=== PATIENT | male | born 1935 | race Caucasian/White ===

== ENCOUNTER 2019-05-04 09:43 | Outpatient (CLI) | payer MEDICARE, SELFPAY ==
--- NOTE | ~2019-05-04 | US_ITS ---
EXAMINATION: US aorta [facility] DATE: 05/04/2019 10:34 INDICATION: Abdominal aortic aneurysm screening. TECHNIQUE: Grayscale, color Doppler, and pulsed Doppler images of the aorta and common iliac arteries were obtained. COMPARISON: None. FINDINGS: The aorta is normal in caliber. The right common iliac artery is normal in caliber. The left common i liac artery is normal in caliber. IMPRESSION: 1. No abdominal aortic aneurysm. Reviewed, dictated and finalized at location A. PRESIDENT RISK MANAGEMENT
== END 2019-05-04 09:44 | disposition home or self-care (01) ==
PROVIDERS: PCP Internal Medicine; Visit Provider Internal Medicine
DX: Z13.6 Encounter for screening for cardiovascular disorders (principal); Z87.891 Personal history of nicotine dependence
CPT/HCPCS: 76706

== ENCOUNTER 2019-10-27 11:56 | Outpatient (CLI) | payer MEDICARE, SELFPAY ==
--- NOTE | 2019-10-27 | ECG_ITS ---
Measurements Intervals [place] Rate: 65 P: [place]: 0 QRS: 0 QRSD: 92 T: 7 QT: 426 QTc: 445 Interpretive Statements SINUS RHYTHM SUPRAVENTRICULAR TRIGEMINY BORDERLINE AV CONDUCTION DELAY BORDERLINE T WAVE ABNORMALITY- INFERIOR LEADS BASELINE WANDER- III, AVF ABNORMAL ECG Electronically Signed On 10-27-2019 12:57:08 CDT by Xiang Burt D.O.
== END 2019-10-27 11:57 | disposition home or self-care (01) ==
LOC: ANHCARD 11:59
PROVIDERS: PCP Internal Medicine; Visit Provider Internal Medicine
DX: E78.5 Hyperlipidemia, unspecified (principal); R94.31 Abnormal electrocardiogram [ECG] [EKG]
CPT/HCPCS: 93005

== ENCOUNTER 2020-01-08 01:42 | Outpatient (CLI) | payer MEDICARE, SELFPAY ==
[2020-01-08 22:13] LABS: SARS-CoV-2 RNA PCR Negative
== END 2020-01-08 01:43 | disposition home or self-care (01) ==
LOC: ANHCOVIDDT 01:42
PROVIDERS: PCP Internal Medicine; Visit Provider Internal Medicine Gastroenterology
DX: Z01.812 Encounter for preprocedural laboratory examination (principal); Z20.828 Contact with and (suspected) exposure to other viral communicable diseases
CPT/HCPCS: 87635; C9803; U0003

== ENCOUNTER 2020-01-11 00:31 | Day surgery (SDC) | payer MEDICARE, SELFPAY ==
[2020-01-04 14:55] VITALS: BMI 33.3
[2020-01-11 06:56] VITALS: BP 112/66; PULSE 72; RESP 18; TEMP 36.5; O2SAT 96; BMI 32.3
[2020-01-11] MEDS: LACTATED RINGERS 1,000 ML 150 ML IV CONT (07:05)
--- NOTE | 2020-01-11 07:08 | WPDANESEPPF ---
Anes - Initial Pre Proc Eval Procedure: Operation Date: 01/11/20 08:00 Proposed Procedures p Screening Colonoscopy - Duncan Galicia MD Date/Time: 01/11/20 07:08 Surgeon: Duncan Galicia MD Pre Op Diagnosis: neoplasm screening Patient Data Age: 84 Gender: M Height: 1.65 m Weight: 88.2 kg Last Vital Signs Temp 36.5 C 01/11/20 06:56 Pulse 72 01/11/20 06:56 Resp 18 01/11/20 06:56 BP 112/66 01/11/20 06:56 Pulse Ox 96 01/11/20 06:56 Allergies Allergy/AdvReac Type Severity Reaction Status Date / Time No Known Allergies Allergy Verified 01/11/20 06:55 Home Medications Medication Instructions Recorded Confirmed Type aspirin 81 mg tablet,delayed 81 mg PO DAILY 04/27/19 01/04/20 History release lovastatin 20 mg tablet 20 mg PO DAILY #90 tablet 10/27/19 01/04/20 Rx tamsulosin 0.4 mg capsule 0.8 mg PO DAILY #180 cap 10/27/19 01/04/20 Rx peg 3350-electrolytes 236 240 ml PO Q10M #4000 ml 11/24/19 01/04/20 Rx gram-22.74 gram-6.74 gram-5.86 gram solution Patient hx anesthesia problems: none Family hx anesthesia problems: none PMFSH Past Medical History Medical History (Updated 01/11/20 @ 07:11 by Gray Fenton MD) BPH (benign prostatic hyperplasia) Dyslipidemia Obesity Osteoarthritis Social History Social History Smoking status: Unknown if ever smoked Alcohol intake: former Substance use: never Substance use type: does not use Living arrangements: with family Spiritual care concerns: No Anes - Eval Final PreProcedure Day of Procedure 01/11/20 07:08 Patient weight: obese Heart: regular rate and rhythm Lungs: clear to auscultation and normal air movement Airway: Mallampati scale class II Neurological: alert and oriented Last oral intake: >/= 8 hours ASA classification: III Emergent: no Anesthetic plan: proceed Anesthesia type and monitoring: general GIVS Informed Consent: The patient's anesthetic plan and its attendant risks and benefits were discussed with the patient/family/POA. Questions were solicited and answers provided to the satisfaction of the patient/family/POA.
--- NOTE | 2020-01-11 08:13 | PM.HPGS ---
History of Present Illness History of Present Illness Consent: Risks, benefits, and alternatives have been discussed and questions answered. Patient agrees to proceed with procedure. Chief complaint: neoplasm screening Narrative: Skylar Ramirez is a 84 year old male with history of colon polyps, he is due to have another one Review of Systems Constitutional: Constitutional: Denies headache(s) and Denies weakness Eyes: Eyes: Denies blurry vision ENT: Reports Normal hearing present, Denies headache(s) and Denies neck pain Cardiovascular: Cardiovascular: Denies chest pain and Denies dyspnea Respiratory: Respiratory: Denies dyspnea Gastrointestinal: Gastrointestinal: Reports no additional gastrointestinal complaints Genitourinary: Genitourinary: Denies dysuria Musculoskeletal: Musculoskeletal: Denies neck pain Integumentary/Breasts: Skin/Breast: Denies dry skin Neurologic: Reports Normal hearing present, Denies headache(s) and Denies weakness Psychiatric: Psychiatric: Denies anxiety Endocrine: Endocrine: Denies change in body appearance Hematologic/Lymphatic: Hematologic/Lymphatic: Denies easy bleeding Allergic/Immunologic: Allergic/Immunologic: Denies urticaria PMFSH Past Medical History Medical History (Updated 01/11/20 @ 07:11 by Gray Fenton MD) BPH (benign prostatic hyperplasia) Dyslipidemia Obesity Osteoarthritis Social History Social History Smoking status: Unknown if ever smoked Alcohol intake: former Substance use: never Substance use type: does not use Living arrangements: with family Spiritual care concerns: No Meds Home Medications and Allergies Home Medications Medication Instructions Recorded Confirmed Type aspirin 81 mg tablet,delayed 81 mg PO DAILY 04/27/19 01/04/20 History release lovastatin 20 mg tablet 20 mg PO DAILY #90 tablet 10/27/19 01/04/20 Rx tamsulosin 0.4 mg capsule 0.8 mg PO DAILY #180 cap 10/27/19 01/04/20 Rx peg 3350-electrolytes 236 240 ml PO Q10M #4000 ml 11/24/19 01/04/20 Rx gram-22.74 gram-6.74 gram-5.86 gram solution Allergies Allergy/AdvReac Type Severity Reaction Status Date / Time No Known Allergies Allergy Verified 01/11/20 06:55 Vital Signs Vital Signs - 24 hr 01/11/20 06:56 Temperature 97.7 F Pulse Rate 72 Respiratory Rate 18 Blood Pressure 112/66 Pulse Oximetry 96 Exam Const: General: comfortable and no acute distress HENMT: General nose exam: Normal nares present Eyes: General: appearance normal, both eyes and all related structures Neck: Neck: no JVD Resp: Auscultation: clear to auscultation bilaterally Cardio: Rate: regular rate Rhythm: regular rhythm GI: Inspection: non-distended GI Palp: Yes Soft to palpation Skin: General skin exam: normal color Neuro: General: gait normal Speech: normal speech Extrem: General: normal to inspection Psych: Mental Status: mental status grossly normal Assessment and Plan Assessment and plan (1) Encounter for screening colonoscopy: Code(s): Z12.11 - Encounter for screening for malignant neoplasm of colon Status: Acute Assessment and Plan: will proceed with colonoscopy
[2020-01-11 08:41] VITALS: BP 116/62; PULSE 55; RESP 20; O2SAT 100
[2020-01-11 08:51] VITALS: BP 128/63; PULSE 58; RESP 16; O2SAT 98
[2020-01-11 09:01] VITALS: BP 133/96; PULSE 51; RESP 18; O2SAT 98
== END 2020-01-11 09:20 | disposition home or self-care (01) ==
PROVIDERS: PCP Internal Medicine; Visit Provider Internal Medicine Gastroenterology
PROC: 0DJD8ZZ Inspection of Lower Intestinal Tract, Via Natural or Artificial Opening Endoscopic (ICD-10-PCS; CPT 45378; principal; 2020-01-11 08:00)
DX: Z12.11 Encounter for screening for malignant neoplasm of colon (principal); D12.3 Benign neoplasm of transverse colon; E78.5 Hyperlipidemia, unspecified; N40.0 Benign prostatic hyperplasia without lower urinary tract symptoms; E66.9 Obesity, unspecified; Z68.32 Body mass index [BMI] 32.0-32.9, adult
CPT/HCPCS: 45380; 88305; J2001; J2704; J7120

== ENCOUNTER 2020-03-13 10:00 | Outpatient (CLI) | payer MEDICARE, SELFPAY ==
--- NOTE | ~2020-03-13 | NM_ITS ---
EXAMINATION: NM alina stress w perfusion DATE: 03/13/2020 12:31 INDICATION: Chest pain. TECHNIQUE: Rest images were obtained following intravenous administration of 9.4 mCi Tc99m tetrofosmi n (Myoview). The patient was infused intravenously with Lexiscan (regadenoson). Then, 29.2 mCi Tc99m tetrofosmin (Myoview) was administered intravenously, and stress images were obtained. Data was recon structed into short axis and horizontal and vertical long axis SPECT images. Gated SPECT images were also obtained. COMPARISON: None. FINDINGS: There is a small, mild, fixed perfusion defect involving apical lateral segment of left nate tricle, consistent with infarct. No reversible component to suggest ischemia. There is no segmental w all motion abnormality. Left ventricular ejection fraction measures >70%. IMPRESSION: 1. 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 2. Normal left ventricular ejection fraction measuring >70%. Reviewed, dictated and finalized at location A. ON DEVELOPER IMPRESSION: 1. Small area of mild infarct involving apical lateral segment of left ventricl e. 2. Normal left ventricular ejection fraction measuring >70%.
--- NOTE | 2020-03-13 10:56 | EST_ITS ---
Patient Info Name: Skylar Ramirez Age: 84 years : 1935 Gender: Male Ht: 65 in Wt: 200 lbs BSA: 2.07 m2 Exam Date: 03/13/2020 11:23 AM Exam Location: [facility] Stress Patient Status: Outpatient Admit Date: 03/13/2020 Staff Ordering Physician: Santi Schroeder MD Attending Provider: Santi Schroeder MD Exercise Technologist: Shameka Adkins CT Exercise Physician: Xiang Burt DO Exam Type: CA stress alina w NM Study Info A regadenoson stress test was performed. Summary 1. 1. Negative lexiscan stress test for ischemic ST changes by ECG criteria. 2. 2. Baseline hypertension. 3. 3. Nuclear scan to follow and will be reported separately. Please correlate with it. 4. 4. Patient informed of the above results. Protocol: Lexiscan Stress ECG Details Stage: REST Duration (min): 14 min : 4 sec HR (bpm): 62 SBP (mmHg): 149 DBP (mmHg): 89 Stage: STAGE 1 Duration (min): 1 min : 0 sec HR (bpm): 68 SBP (mmHg): 157 DBP (mmHg): 84 Stage: RECOVERY Duration (min): 1 min : 0 sec HR (bpm): 80 SBP (mmHg): 157 DBP (mmHg): 84 Stage: RECOVERY Duration (min): 1 min : 59 sec HR (bpm): 81 SBP (mmHg): 167 DBP (mmHg): 80 Rest HR: 62 bpm Peak HR: 81 bpm Rest Sys BP: 149 mmHg Peak Sys BP: 167 mmHg Max Pred HR: 137 bpm % Max Pred HR: 59 % Target HR: 116 bpm Max RPP: 13,527 bpm*mmHg Termination Reason: Completed protocol Cardiac Symptoms: Chest discomfort Total Time: 1 min : 0 sec Rest [place] BP: 89 mmHg Peak [place] BP: 80 mmHg Total Dose: 0.4 mg Resting ECG Sinus rhythm. Stress ECG No ST changes. Arrhythmias None. Report Signatures
== END 2020-03-13 10:01 | disposition home or self-care (01) ==
LOC: ANHCARD 10:01
PROVIDERS: PCP Internal Medicine; Visit Provider Internal Medicine
DX: R07.89 Other chest pain (principal)
CPT/HCPCS: 78452; 93017; A9502; J2785

== ENCOUNTER 2020-07-25 12:09 | Outpatient (CLI) | payer MEDICARE, SELFPAY ==
--- NOTE | ~2020-07-25 | CT_ITS ---
EXAMINATION: CT brain wo con DATE: 07/25/2020 12:36 INDICATION: Altered mental status TECHNIQUE: Computed tomography (CT) of the head was performed without intravenous contrast. The mA wa s adjusted according to patient size. Iterative reconstruction technique was employed. Exam dose: 60 5.33 mGy-cm total exam DLP. COMPARISON: None FINDINGS: Minimal right basal ganglia calcification. Bilateral carotid siphon internal carotid artery calcifications and vertebral basilar artery calcific ation. There is nonspecific diminished attenuation of the cerebral white matter, likely due to chroni c small vessel ischemic changes. No intracranial mass lesion or hemorrhage or cerebrovascular accident is evident. No subdural or epidural hematoma. The orbital contents are unremarkable. There is mild to moderate mucoperiosteal thickening of the maxillary sinuses. The remaining paranasal sinuses are unremarkable. The mastoid air cells are normally developed and aerated. Middle and inner ear apparatus appear unremarkable. There is age consistent cerebral and cerebellar volume loss. No subdural or epidural hematoma. IMPRESSION: Cerebral atherosclerosis and chronic small vessel ischemic changes of the cerebral white matter No acute intracranial finding Reviewed, dictated and finalized at Location A. Reviewed, dictated and finalized at location B.
== END 2020-07-25 12:10 | disposition home or self-care (01) ==
PROVIDERS: PCP Internal Medicine; Visit Provider Internal Medicine
DX: R41.89 Other symptoms and signs involving cognitive functions and awareness (principal)
CPT/HCPCS: 70450

== ENCOUNTER → 2022-04-05 15:29 | Outpatient (CLI) | payer MEDICARE, SELFPAY ==
--- NOTE | ~2022-04-05 | XR_ITS ---
EXAMINATION: XR sternoclavicular joint BI INDICATION: Cough, lump at the right sternoclavicular joint TECHNIQUE: Three views of the sternoclavicular joints are obtained. COMPARISON: None available FINDINGS: Bone alignment is normal. There is no fracture. No radiographic correlate is identified for the reported lump at the right sternoclavicular joint. IMPRESSION: 1. No acute osseous abnormality. Reviewed, dictated and finalized at location F. ARCH AND DEVELOPMENT TESTER
--- NOTE | ~2022-04-05 | XR_ITS ---
EXAMINATION: XR chest 2V DATE: 04/05/2022 16:00 INDICATION: One week of cough. TECHNIQUE: frontal and lateral views of the chest were obtained. COMPARISON: None FINDINGS: The lungs are clear with no focal airspace opacities, pulmonary edema, pleural effusion or pneumothor ax. The cardiomediastinal silhouette is normal. Moderate bilateral acromioclavicular osteoarthritis w ith more prominent hypertrophic changes at the right acromioclavicular joint. Multilevel bridging ost eophytes along the thoracic spine. IMPRESSION: 1. No acute cardiopulmonary disease. Reviewed, dictated and finalized at location B. NGUAL EXECUTIVE ASSISTANT
== END ==
PROVIDERS: PCP Nurse Practitioner; Visit Provider Nurse Practitioner
DX: M19.019 Primary osteoarthritis, unspecified shoulder (principal); R05.9 Cough, unspecified
CPT/HCPCS: 71046; 71130

== ENCOUNTER 2023-08-11 09:21 | Emergency (ER) | payer MEDICARE, SELFPAY ==
--- NOTE | ~2023-08-11 | XR_ITS ---
Left Hand Technique: PA, oblique, and lateral views were obtained. Clinical History: Pain Findings: No acute fracture or dislocation is seen. Osseous alignment is anatomic. Joint spaces are p reserved. Soft tissues are unremarkable. Impression: Unremarkable left hand. Reviewed, dictated and finalized at location M. Impression: Unremarkable left hand.
--- NOTE | ~2023-08-11 | XR_ITS ---
Left wrist Technique: PA, oblique, lateral, and ulnar deviation views were obtained. Clinical History: Pain Findings: There is a very subtle, nondisplaced, intra-articular fracture of the radial styloid proces s. There is also transverse, essentially nondepressed fracture the base of the ulnar styloid process. Joint spaces are preserved. Soft tissues are unremarkable. Impression: Acute, nondisplaced intra-articular fracture of the radial styloid process. Nondisplaced fracture of the ulnar styloid process. Generalized osteopenia. Reviewed, dictated and finalized at location M. Impression: Acute, nondisplaced intra-articular fracture of the radial styloid process. Nondisplaced fracture of the ulnar styloid process. Generalized osteopenia.
[2023-08-11 09:28] VITALS: BP 143/92; PULSE 59; RESP 18; TEMP 36.4; O2SAT 97
--- NOTE | 2023-08-11 09:46 | ED.FALL ---
HPI - Fall General Chief Complaint: Fall Stated Complaint: fell, left hand injury Time Seen by Provider: 08/11/23 09:27 Source: patient Mode of arrival: ambulatory Limitations: no limitations History of Present Illness HPI Narrative: Patient is an 87 y/o male who presents to the ED with c/o a fall. Patient reports he slipped with his cane on a wet floor and fell. He did hit his head, sustained small abrasions to his left face. Denied LOC. He takes ASA 81 mg daily, no other blood thinners. C/o pain to his left wrist and hand. Denies [place], neck or back pain, numbness, dizziness, lightheadedness, vision changes. Related Data Home Medications Medication Instructions Recorded Confirmed aspirin 81 mg tablet,delayed 81 mg PO DAILY 04/27/19 02/13/23 release (Adult Low Dose Aspirin) lutein 10 mg tablet 10 mg PO DAILY 10/26/20 02/13/23 Allergies Allergy/AdvReac Type Severity Reaction Status Date / Time No Known Allergies Allergy Verified 08/11/23 09:33 Review of Systems Review of Systems: CONSTITUTIONAL: Denies fever, chills, or sweats. MUSCULOSKELETAL: See HPI NEUROLOGIC: See HPI. All systems reviewed & are unremarkable except as noted in HPI and below PMFSH Past Medical History Medical History Ataxia BPH (benign prostatic hyperplasia) Dyslipidemia Falls frequently Obesity Osteoarthritis Social History Social History Smoking status: Former smoker Tobacco type: cigars Second hand tobacco smoke exposure: No Alcohol intake: current Alcohol use details: Wine Substance use: never Substance use type: does not use Lack of Transportation: No Lack of Food: Never True Current Housing: Decline to Answer Concerned About Future Housing: Decline to Answer Difficulty Paying Gas/Electric Bills: Decline to Answer Difficulty Paying for Meds: Decline to Answer Currently Unemployed: Decline to Answer Education: Decline to Answer Difficulty w/ Childcare or Family Care: Decline to Answer Living arrangements: with family Spiritual care concerns: No Exam Narrative: GENERAL: Elderly, well-nourished, non-toxic, in no acute distress. HEAD: Normocephalic. Small abrasions to left facial cheek. EYES: PERRL/EOMI NECK: No midline spinal tenderness. Sensation intact. RESPIRATORY: Airway patent, respirations nonlabored. Clear to auscultation bilaterally, no rales, rhonchi, wheezing. CARDIOVASCULAR: Regular rate and rhythm without murmurs, rubs, or gallops. Radial pulses equal. MUSCULOSKELETAL: Moves all extremities. No gross deformities. TTP over L distal ulna extending into base of hand, less significant tenderness over distal radius. No snuff box tenderness. Sensation intact. SKIN: Warm, dry, normal color. NEURO: A&O X3. Speech clear. Cranial nerves II-XII grossly intact. Steady gait. No ataxic movements. PSYCHIATRIC: Appropriate mood and affect. Normal interaction. Course Vital Signs Vital signs: Vital Signs Temperature 97.6 F 08/11/23 09:28 Pulse Rate 59 L 08/11/23 09:28 Respiratory Rate 18 08/11/23 09:28 Blood Pressure 143/92 H 08/11/23 09:28 Pulse Oximetry 97 08/11/23 09:28 Oxygen Delivery Room Air 08/11/23 09:28 Temperature 97.6 F 08/11/23 09:28 Pulse Rate 59 L 08/11/23 09:28 Respiratory Rate 18 08/11/23 09:28 Blood Pressure 143/92 H 08/11/23 09:28 Pulse Oximetry 97 08/11/23 09:28 Oxygen Delivery Room Air 08/11/23 09:28 MDM - Fall MDM Narrative Medical decision making narrative: Patient presented to ED status post ground level mechanical fall, injury to left wrist. Did sustain head injury, small abrasions to left facial cheek. No LOC. Po prodromal symptoms prior to fall. Vitals are stable. Neurologically intact. Patient refused CT brain and cervical spine. Voiced understanding of risks of refusing. X-ra
[2023-08-11 12:03] VITALS: BP 139/75; PULSE 62; RESP 16; TEMP 36.8; O2SAT 100
== END 2023-08-11 12:05 | disposition home or self-care (01) ==
PROVIDERS: Emergency Provider Physician Assistant; PCP Family Medicine
DX: S52.515A Nondisplaced fracture of left radial styloid process, initial encounter for closed fracture (principal); S52.615A Nondisplaced fracture of left ulna styloid process, initial encounter for closed fracture; W19.XXXA Unspecified fall, initial encounter; Z79.82 Long term (current) use of aspirin; E78.5 Hyperlipidemia, unspecified; E66.9 Obesity, unspecified; Z68.32 Body mass index [BMI] 32.0-32.9, adult; Z87.891 Personal history of nicotine dependence
CPT/HCPCS: 29125; 73110; 73130; 99284

== ENCOUNTER 2024-04-08 12:46 | Outpatient (CLI) | payer MEDICARE, SELFPAY ==
--- NOTE | ~2024-04-08 | MR_ITS ---
EXAMINATION: MR brain/brain stem wo con DATE: 04/08/2024 13:39 INDICATION: Ataxia, unspecified. TECHNIQUE: Magnetic resonance imaging (MRI) of the brain and brainstem was performed without intraven ous contrast. COMPARISON: Head CT 07/25/2020 FINDINGS: There are scattered areas of nonspecific increased T2-weighted signal intensity in the cere bral white matter. There is no intracranial hemorrhage, acute infarction, or abnormal intracranial ma ss lesion. The ventricles are normal in size. There are likely changes of left ocular lens replacemen t surgery. There is mucosal thickening in the paranasal sinuses. The mastoid air cells are normal. IMPRESSION: 1. Moderate nonspecific cerebral white matter disease, which likely represents chronic small vessel i schemic disease. Reviewed, dictated and finalized at location A. DEND DEPOSIT VOUCHER CLERK IMPRESSION: 1. Moderate nonspecific cerebral white matter disease, which likely represents chronic small vessel ischemic disease.
== END 2024-04-08 12:47 | disposition home or self-care (01) ==
PROVIDERS: PCP Family Medicine; Visit Provider Psychiatry & Neurology Neurology
DX: R27.0 Ataxia, unspecified (principal); R29.6 Repeated falls; Z87.828 Personal history of other (healed) physical injury and trauma
CPT/HCPCS: 70551

== ENCOUNTER 2024-08-27 14:18 | Emergency (ER) | payer MEDICARE, SELFPAY ==
--- NOTE | ~2024-08-27 | CT_ITS ---
EXAMINATION: CT brain wo con DATE: 08/27/2024 15:31 INDICATION: Altered mental status TECHNIQUE: Computed tomography (CT) of the head was performed without intravenous contrast. Sagittal and coronal reconstructions were performed. The mA was adjusted according to patient size. Iterative reconstruction technique was employed. The dose-length product was 605.33 mGy-cm. COMPARISON: head CT dated 07/25/2020 and brain MR dated 04/08/2024 FINDINGS: No acute intracranial hemorrhage, acute infarction or abnormal extra axial fluid collection. There is mild scattered white matter hypoattenuation consistent with chronic small vessel ischemic disease. S ymmetric prominence of the sulci and ventricles consistent with mild to moderate age-appropriate diff use cerebral volume loss. No mass/mass effect. Changes of left intraocular lens replacement. The orbi ts and mastoid air cells are normal. Mild mucosal thickening in the bilateral ethmoid and maxillary s inuses. IMPRESSION: 1. No acute intracranial process. 2. Age-related changes including mild to moderate diffuse volume loss and mild scattered white matter hypoattenuation consistent with chronic small vessel ischemic disease. Reviewed, dictated and finalized at location B. IMPRESSION: 1. No acute intracranial process. 2. Age-related changes including mild to moderate diffuse volume loss and mild scattered white matter hypoattenuation consistent with chronic small vessel isc hemic disease.
--- NOTE | ~2024-08-27 | XR_ITS ---
EXAMINATION: XR chest 1V portable DATE: 08/27/2024 15:18 INDICATION: Altered mental status TECHNIQUE: frontal view of the chest was obtained. COMPARISON: Chest radiograph dated 04/05/2022 FINDINGS: The lungs are clear with no focal airspace opacities, pulmonary edema, pleural effusion or pneumothor ax. The cardiomediastinal silhouette is normal. Cystectomy clips in right upper quadrant. IMPRESSION: 1. No acute cardiopulmonary disease. Reviewed, dictated and finalized at location B.
[2024-08-27 14:17] VITALS: BP 154/63; PULSE 67; RESP 12; TEMP 36.4; O2SAT 98
--- NOTE | 2024-08-27 14:41 | ECG_ITS ---
Test Date: 2024-08-27 15:38:48 Measurements Intervals [place] Rate: 61 P: 70 IN: 200 QRS: -4 QRSD: 96 T: -15 QT: 448 QTc: 453 Interpretive Statements SINUS RHYTHM BASELINE ARTIFACT- I, II, III, AVR, AVL, AVF NORMAL ECG No previous ECG available for comparison Electronically Signed On 08-27-2024 15:51:31 CDT by Xiang Burt D.O.
--- NOTE | 2024-08-27 15:09 | ED.GENADULT ---
HPI - General Adult General Chief complaint: Altered Mental Status Stated complaint: increased falls and confusion Time Seen by Provider: 08/27/24 14:26 History of Present Illness HPI narrative: This is an 88-year-old male history of dementia with hallucinations presenting for altered mental status. The patient is alert and oriented and can not hold a conversation with you. However he appears to be troubled by hallucinations. He says that 2 days ago he walked in on his 86-year-old sleeping with another man. He says that this is causing him devastating emotional distress. He denies any physical complaints at this time such as headache fevers chills nausea vomiting diarrhea chest pain difficulty breathing abdominal pain or urinary symptoms. Patient says that he has had several slips but no true falls at the senior care. He is not have any pain anywhere. Related Data Home Medications ?Medication ?Instructions ?Recorded ?Confirmed ?Last Taken ?Type aspirin 81 mg tablet,delayed 81 mg PO DAILY 04/27/19 06/16/24 01/09/20 History release (Adult Low Dose Aspirin) lutein 10 mg tablet 10 mg PO DAILY 10/26/20 06/16/24 Unknown History mecobalamin (vitamin B12) 2,500 mcg PO 10/28/23 06/16/24 Unknown History mcg chewable tablet Allergies Allergy/AdvReac Type Severity Reaction Status Date / Time No Known Allergies Allergy Verified 06/16/24 13:46 [facility] Past Medical History Medical History Falls frequently Ataxia Obesity Osteoarthritis BPH (benign prostatic hyperplasia) Dyslipidemia Social History Social History Smoking status: Former smoker Tobacco type: cigars Second hand tobacco smoke exposure: No Alcohol intake: current Alcohol use details: Wine Substance use: never Substance use type: does not use Lack of Transportation: No Lack of Food: Never True Current Housing: Decline to Answer Concerned About Future Housing: Decline to Answer Difficulty Paying Gas/Electric Bills: Decline to Answer Difficulty Paying for Meds: Decline to Answer Currently Unemployed: Decline to Answer Education: Decline to Answer Difficulty w/ Childcare or Family Care: Decline to Answer Living arrangements: with family Spiritual care concerns: No Exam Narrative: APPEARANCE: No apparent distress. Head: atraumatic. EYES: EOMI, NOSE: Atraumatic NECK: Trachea midline RESPIRATORY: No increased rate of breathing clear to auscultation CARDIOVASCULAR: RRR, no peripheral edema ABDOMINAL: Non-distended soft nontender MUSCULOSKELETAl: Head to toe trauma exam performed no areas of deformity or pain NEURO: Alert. Cranial nerves 2-12 grossly intact. Sensation light touch, motor function cerebellar function intact for 4 extremities. Gait exam was deferred SKIN:: Warm, dry. Normal color PSYCHIATRIC: Normal affect Course Vital Signs Vital signs: Vital Signs Temperature 97.6 F 08/27/24 14:17 Pulse Rate 08/27/24 14:17 Respiratory Rate 08/27/24 14:17 Blood Pressure 154/63 H 08/27/24 14:17 Pulse Oximetry 98 08/27/24 14:17 Oxygen Delivery Room Air 08/27/24 14:17 Temperature 97.6 F 08/27/24 14:17 Pulse Rate 08/27/24 14:17 Respiratory Rate 08/27/24 14:17 Blood Pressure 154/63 H 08/27/24 14:17 Pulse Oximetry 98 08/27/24 14:17 Oxygen Delivery Room Air 08/27/24 14:17 Medical Decision Making MDM Narrative Medical decision making narrative: -Course: 88-year-old male with known history of dementia w/ hallucinations presenting for hallucinations. Patient believes that his is cheating on him which I can neither confirm nor deny. From a medical point of view his imaging, laboratory studies and infectious workup were all within normal limits. Given his history of dementia with hallucinations I do not see reason to admit him to the hospital. Patient will be discharged back to senior care. He can return if he develops any new or worsening symptoms. -DDX includes but is not limited to: Sepsis UTI dehydration dementia pneumonia delirium Vital Signs Vital Signs: Vital Signs Temperature 97.6 F 08/27/24 14:17 Pulse Rate 08/27/24 14:17 Respiratory Rate 08/27/24 14:17 Blood Pressure 154/63 H 08/27/24 14:17 Pulse Oximetry 98 08/27/24 14:17 Oxygen Delivery Room Air 08/27/24 14:17 Temperature 97.6 F 08/27/24 14:17 Pulse Rate 67 08/27/24 14:17 Respiratory Rate 08/27/24 14:17 Blood Pressure 154/63 H 08/27/24 14:17 Pulse Oximetry 98 08/27/24 14:17 Oxygen Delivery Room Air 08/27/24 14:17 Lab Data 08/27/24 15:06 08/27/24 15:06 Labs: Lab Results 08/27/24 08/27/24 08/27/24 Range/Units 15:06 15:57 16:37 WBC 7.0 (4.5-10.0) K/mm3 RBC 3.82 L (4.6-6.20) M/mm3 Hgb 12.8 L (14.0-18.0) g/dL Hct 39.1 L (42.0-52.0) % MCV 102.4 H (80-100) fl MCH 33.5 (26-34) pg MCHC 32.7 (32-36) g/dl RDW 13.9 (11.5-14.5) % Plt Count 161 (150-375) k/mm3 MPV 9.5 (7.4-10.4) fl Immature Gran % (Auto) 0.3 (0-0.5) % Neut % (Auto) 53.1 (45.5-73.1) % Lymph % (Auto) 32.1 (18.3-44.2) % [place] % (Auto) 10.3 H (2.6-8.5) % Eos % (Auto) 3.6 (0-4.4) % Baso % (Auto) 0.6 (0.2-1.2) % Lymph # (Auto) 2.25 (0.9-3.2) K/mm3 [place] # (Auto) 0.7 H (0.1-0.6) K/mm3 Eos # (Auto) 0.3 (0-0.3) K/mm3 Baso # (Auto) 0.0 (0.0-0.1) K/mm3 Abs Immat Gran (auto) 0.02 (0.00-0.031) K/mm3 Absolute Neuts (auto) 3.7 (1.3-6.7) K/mm3 Absolute Nucleated RBC 0.000 (0.0-0.012) K/mm3 Nucleated RBC % 0.0 (0.0-0.2) % Sodium 143 (137-145) mmol/L Potassium 3.5 (3.4-5.0) mmol/L Chloride 110 H (98-107) mmol/L Carbon Dioxide 23 (22-30) mmol/L Anion Gap 10 (4-12) mmol/L BUN 14 (9-20) mg/dL Creatinine 0.77 (0.7-1.3) mg/dL Estim Creat Clear Calc 53 ml/min Estimated GFR > 60 (59 - ) Glucose 109 (65-110) mg/dL POC Capillary Glucose 99 (65-105) mg/dl Lactic Acid 0.8 (0.7-2.0) mmol/L Calcium 9.0 (8.4-10.2) mg/dL Total Bilirubin 0.9 (0.2-1.3) mg/dL AST 29 (17-59) U/L ALT 14 (6-50) U/L Alkaline Phosphatase 107 (38-126) U/L Total Protein 7.2 (6.3-8.2) g/dL Albumin 4.1 (3.5-5.1) g/dL Lipase 29 (23-300) U/L TSH (Reflex) 1.570 (0.465-4.68) uIU/mL Urine Color Dark yellow (Yellow) Urine Appearance Clear (Clear) Urine pH 5.5 (5.0-9.0) Ur Specific [place] 1.027 (1.001-1.035) Urine Protein Negative (Negative) mg/dL Urine Glucose (UA) Negative (Negative) mg/dL Urine Ketones Trace H (Negative) mg/dL Ur Blood (Man) Negative (Negative) Urine Nitrate Negative (Negative) Urine Bilirubin Negative (Negative) Urine Urobilinogen 1.0 (<2.0) mg/dL Leukocyte Esterase Rfl Negative (Negative) ATIYA/UL Urine Opiates Screen Negative (Negative) Urine Methadone Screen Negative (Negative) Ur Barbiturates Screen Negative (Negative) Ur Phencyclidine Scrn Negative (Negative) Ur Amphetamine Screen Negative (Negative) U Benzodiazepines Scrn Negative (Negative) Urine Cocaine Screen Negative (Negative) U Cannabinoids Screen Negative (Negative) Ethyl Alcohol < 10 (<10) mg/dL Influenza A (RT-PCR) Negative (Negative) Influenza B (RT-PCR) Negative (Negative) RSV (RT-PCR) Negative (Negative) SARS-CoV-2 RNA (RT-PCR) Negative (Negative) Discharge Plan Discharge Clinical Impression: Dementia Patient Disposition: Home Condition: Stable Instructions: Antibiotic Form, Dementia (ED) Additional Instructions: [place] was seen in the ED for altered mental status. Patient has a history of dementia with hallucinations which is what I believe he is currently experiencing. No signs of infection, metabolic abnormalities or trauma. Patient should follow-up with primary care physician develops any new or worsening symptoms he can return to ED for re-evaluation. Patient Language: Czech Prescriptions: No Action aspirin [Adult Low Dose Aspirin] 81 mg tablet,delayed release (DR/EC) 81 mg PO DAILY lutein 10 mg tablet 10 mg PO DAILY Rx Instructions: give with meal/snack memantine 10 mg tablet 10 mg PO BID Qty: 180 3RF quetiapine 25 mg tablet 25 mg PO BID Qty: 60 5RF Rx Instructions: start with 1 tablet at bedtime and after 1 week increase to 1 twice a day or 2 tablets at doxepin 10 mg capsule 10 mg PO QHS Qty: 90 0RF tamsulosin 0.4 mg capsule 0.8 mg PO DAILY Qty: 180 1RF lovastatin 20 mg tablet 20 mg PO DAILY Qty: 90 1RF mecobalamin (vitamin B12) 2,500 mcg tablet,chewable PO donepezil 5 mg tablet See Rx Instructions .ROUTE .COMPLEX Qty: 90 0RF Dose Instruction: TAKE 1 TABLET BY MOUTH ONCE DAILY AT BEDTIME FOR 30 DAYS THEN 2 ONCE DAILY AT BEDTIME THEREAFTER Rx Instructions: TAKE 1 TABLET BY MOUTH ONCE DAILY AT BEDTIME FOR 30 DAYS THEN 2 ONCE DAILY AT BEDTIME THEREAFTER Follow-up/Referrals: Vaibhav Haro MD [Primary Care Provider] -
[2024-08-27 15:15] LABS: Basophils Percent Auto 0.6 % (0.2-1.2); Eosinophils Absolute Auto 0.3 K/mm3 (0-0.3); Eosinophils Percent Auto 3.6 % (0-4.4); Hematocrit 39.1 % (42.0-52.0); Hemoglobin 12.8 g/dL (14.0-18.0); Immature Granulocyte Absolute 0.02 K/mm3 (0.00-0.031); Immature Granulocyte Percent A 0.3 % (0-0.5); Lymphocytes Absolute Auto 2.25 K/mm3 (0.9-3.2); Lymphocytes Percent Auto 32.1 % (18.3-44.2); Mean Corpuscular HGB Conc 32.7 g/dl (32-36); Mean Corpuscular Hemoglobin 33.5 pg (26-34); Mean Corpuscular Volume 102.4 fl (80-100); Mean Platelet Volume 9.5 fl (7.4-10.4); Monocytes Absolute Auto 0.7 K/mm3 (0.1-0.6); Monocytes Percent Auto 10.3 % (2.6-8.5); Neutrophils Absolute Auto 3.7 K/mm3 (1.3-6.7); Neutrophils Percent Auto 53.1 % (45.5-73.1); Platelet Count Result 161 k/mm3 (150-375); Red Blood Count 3.82 M/mm3 (4.6-6.20); Red Cell Distribution Width 13.9 % (11.5-14.5)
[2024-08-27 15:25] LABS: Lactic Acid Reflex 0.8 mmol/L (0.7-2.0)
[2024-08-27 15:26] LABS: Alanine Aminotransferase 14 U/L (6-50); Albumin Level 4.1 g/dL (3.5-5.1); Alkaline Phosphatase 107 U/L (38-126); Anion Gap 10 mmol/L (4-12); Aspartate Amino Transferase 29 U/L (17-59); Bilirubin,Total 0.9 mg/dL (0.2-1.3); Blood Urea Nitrogen 14 mg/dL (9-20); Carbon Dioxide 23 mmol/L (22-30); Chloride 110 mmol/L (98-107); Estimated CRCL calculation 53 ml/min; Estimated Glomerular Filt Rate > 60; Glucose 109 mg/dL (65-110); Lipase 29 U/L (23-300); Potassium 3.5 mmol/L (3.4-5.0); Sodium 143 mmol/L (137-145); Total Protein 7.2 g/dL (6.3-8.2)
[2024-08-27 15:27] LABS: Ethanol < 10 mg/dL (<10)
[2024-08-27] MEDS: SODIUM CHLORIDE 0.9% IV 1,000 ML 999 ML IV CONT (15:39)
[2024-08-27 16:03] LABS: Add Urine Microscopic? YES; Appearance Urine Clear (Clear); Bilirubin Urine Negative (Negative); Blood Urine Negative (Negative); Color Urine Dark Yellow (Yellow); Glucose Urine UA Negative (Negative); Ketones Urine Trace mg/dL (Negative); Leukocyte Esterase Ur Negative LEU/UL (Negative); Nitrate Urine Negative (Negative); Protein Urine Negative (Negative); Specific Grav Ur 1.027 (1.001-1.035); pH Urine 5.5 (5.0-9.0)
[2024-08-27 16:31] LABS: Influenza A QL RT-PCR Negative (Negative); Influenza B QL RT-PCR Negative (Negative); RSV RNA, RT-PCR Negative (Negative); SARS-CoV-2 RNA PCR Negative (Negative)
[2024-08-27 16:40] LABS: Glucose Point of Care 99 mg/dl (65-105)
[2024-08-27 16:41] LABS: Amphetamine Screen Urine Negative (Negative); Barbiturate Screen Urine Negative (Negative); Benzodiazepines Screen Urine Negative (Negative); Cannabinoid Screen Urine Negative (Negative); Cocaine Screen Urine Negative (Negative); Methadone Screen Urine Negative (Negative); Opiate Screen Urine Negative (Negative); Phencyclidine Screen Urine Negative (Negative)
== END 2024-08-27 18:31 ==
PROVIDERS: Emergency Provider Emergency Medicine; PCP Family Medicine
DX: R44.1 Visual hallucinations (principal); F03.90 Unspecified dementia, unspecified severity, without behavioral disturbance, psychotic disturbance, mood disturbance, and anxiety; E78.49 Other hyperlipidemia; Z11.59 Encounter for screening for other viral diseases
CPT/HCPCS: 36415; 70450; 71045; 80053; 80307; 81001; 82077; 82948; 83605; 83690; 84443; 85025; 87637; 93005; 96360; 99284; J7030

== ENCOUNTER 2024-09-02 11:08 | Inpatient (IN) | payer MEDICARE, SELFPAY ==
--- NOTE | ~2024-09-02 | CT_ITS ---
CT brain wo con Ordering provider: Mandy Cortez MD History: 88 years Male with . headache, fall. BEST OF IMAGES, PATIENT AGGRESSIVE . Comparison: August 28, 2023 Technique: CT of the head without contrast. Radiation reduction technique utilized.The dose-length pr oduct was 605.33 mGy-cm. FINDINGS: BRAIN PARENCHYMA AND CSF SPACES: Mild leukoaraiosis and diffuse cortical atrophy. Mild atheromatous d isease. No midline shift, mass effect or hemorrhage. The brain parenchyma and CSF spaces are otherwi se normal. VISUALIZED PARANASAL SINUSES: Well aerated. MASTOIDS: Well aerated. BONES: The bones appear intact. SOFT TISSUES: Visualized nasopharynx is normal. Soft tissue density in the left scapula in the occip ital area. Superficial soft tissues are normal. IMPRESSION: No acute intracranial findings. Reviewed, dictated and finalized at location A.
--- NOTE | ~2024-09-02 | XR_ITS ---
XR chest 1V portable Ordering provider: Mandy Cortez MD History: 88 years Male with . ams . Comparison: August 27, 2024 FINDINGS: MEDIASTINUM: The cardiac silhouette is not enlarged. LUNGS: No infiltrates, effusions or pneumothorax. OTHER: No free air under the diaphragm. Degenerative changes of the spine IMPRESSION: No acute cardiopulmonary pathology Reviewed, dictated and finalized at location A.
--- NOTE | ~2024-09-02 | CT_ITS ---
CT cervical spine wo con Ordering provider: Mandy Cortez MD History: . fall. BEST OF IMAGES, PATIENT IS AGGRESSIVE . Comparison: None. Technique: CT of the cervical spine was performed without contrast. Sagittal and coronal reformatted images were also obtained and reviewed. Automated exposure control and iterative reconstruction ortiz hnique were employed. The dose-length product was 301.14 mGy-cm. FINDINGS: VERTEBRAE: No subluxation or acute fracture. The occipital condyles are intact. DISC SPACES: Narrowing of the disc C3-C4, C4-C5 and C5-C6. Multilevel uncovertebral joint osteoarthri tic changes. Multilevel spinal canal stenosis and intervertebral foraminal narrowing. PARASPINOUS SOFT TISSUES: Normal. IMPRESSION: No acute osseous abnormality cervical spine. Multilevel degenerative disc disease. Multilevel spinal canal stenosis and intervertebral foraminal n arrowing. Reviewed, dictated and finalized at location A. IMPRESSION: No acute osseous abnormality cervical spine. Multilevel degenerative disc disease. Multilevel spinal canal stenosis and inte rvertebral foraminal narrowing.
--- NOTE | ~2024-09-02 | MR_ITS ---
MRI of the brain Clinical History: Altered mental status, CVA Technique: Axial and sagittal T1-weighted images were acquired. These were followed by axial T2-weigh katherine, diffusion weighted, gradient, and FLAIR images. Findings: There is no acute infarct, internal hemorrhage, or mass lesion. There is moderate to severe chronic microvascular ischemic change in the periventricular white matter bilaterally. Ventricles and subarachnoid spaces are unremarkable. Orbits are unremarkable. Paranasal sinuses and m astoid air cells are clear. Major intracranial flow voids appear intact. Sagittal midline structures are intact. IMPRESSION: No acute infarct, intracranial hemorrhage or mass lesion. Moderate to advanced chronic microvascular ischemic change and mild to moderate generalized atrophy. Reviewed, dictated and finalized at location M.
--- NOTE | 2024-09-02 11:24 | PC.NURSE ---
This RN observed pts primary nurse attempting to assess pt, requesting orientation questions, pt refused to answer and states You dont need to know that, I am not giving information, I dont want to be seen, leave me alone. This RN attempted w/ Jethro RN to obtain VS. Pt refused and pulled cuff off of arm. Pt in clothing and refusing down. Pt has stool smell of possible soiled depends. This RN asked pt if I can change him, pt refused, states Leave me alone. Dont touch me. I like sitting in this. Im fine.
[2024-09-02 13:17] LABS: Add Urine Microscopic? YES; Appearance Urine Clear (Clear); Bilirubin Urine Negative (Negative); Blood Urine Negative (Negative); Color Urine Dark Yellow (Yellow); Glucose Urine UA Negative (Negative); Ketones Urine 1+ mg/dL (Negative); Leukocyte Esterase Ur Negative LEU/UL (Negative); Nitrate Urine Negative (Negative); Protein Urine Negative (Negative); Specific Grav Ur 1.019 (1.001-1.035)
--- NOTE | 2024-09-02 13:44 | ED.GENADULT ---
HPI - General Adult General Chief complaint: Fall Stated complaint: ?abnormal labs per NH that aren't abnormal for EMS Time Seen by Provider: 09/02/24 13:13 History of Present Illness HPI narrative: correction had reported multiple falls recently. They also reported abnormal vital signs (not labs, as initiallyl documented) with bradycardia and hypertension but EMS did not appreciate abnormal vital signs on their assessment.. Patient is calm but appears aggravated. He denies any chest pain or abdominal pain or shortness of breath. He states he has a headache. Would be amenable to Tylenol. When asked if he has been eating and drinking he states, You've got to be joking me. What food?If patient will not initially tell me his son's name but when I found it on the documentation and said Chauncey, he shrugged. Was reported the patient had swelled on himself and refused to let staff mean time. He was calling paramedics name and being beligerent. He does state he is chilled and requests he be covered up with the sheet/blanket again. Related Data Home Medications ?Medication ?Instructions ?Recorded ?Confirmed ?Last Taken ?Type lutein 10 mg tablet 10 mg PO DAILY 10/26/20 09/02/24 Unknown History mecobalamin (vitamin B12) 2,500 2,500 mcg PO DAILY 10/28/23 09/02/24 Unknown History mcg chewable tablet Allergies Allergy/AdvReac Type Severity Reaction Status Date / Time No Known Allergies Allergy Verified 06/16/24 13:46 [facility] Past Medical History Medical History Falls frequently Ataxia Obesity Osteoarthritis BPH (benign prostatic hyperplasia) Dyslipidemia Social History Social History Social History: POLST signed 08/09/24 lists Do Not Attempt Resuscitation/DNR with comfort-focused treatment Smoking status: Former smoker Tobacco type: cigars Second hand tobacco smoke exposure: No Alcohol intake: unknown Alcohol use details: Wine Substance use: unknown Substance use type: does not use Do You Feel Safe in your Home?: Yes Lack of Transportation: No Lack of Food: Never True Current Housing: Decline to Answer Concerned About Future Housing: Decline to Answer Difficulty Paying Gas/Electric Bills: Decline to Answer Difficulty Paying for Meds: Decline to Answer Currently Unemployed: Decline to Answer Education: Decline to Answer Difficulty w/ Childcare or Family Care: Decline to Answer Living arrangements: longterm Additional living arrangements comments: [facility] care concerns: No Exam Narrative: GENERAL: Well-appearing, well-nourished, and in no acute distress. HEAD: Normocephalic, atraumatic. EYES: Non injected, non icteric ENT: Nares clear, no rhinorrhea or epistaxis. Gross auditory acuity intact. NECK: Supple. No meningismus. CHEST: Speaking in full sentences. No respiratory distress. HEART: Will not allow vital signs to be obtained ABDOMEN: Soft, nondistended. EXTREMITIES: Normal range of motion. No lower extremity edema. SKIN: Warm, dry, no rash on exposed skin. NEURO: No focal deficits. Alert and oriented. Answering questions. Following commands. Normal speech without aphasia or dysarthria. PSYCH: Congruent mood and affect. Agitated but calm. Course Vital Signs Vital signs: Vital Signs Blood Pressure 141/60 H 09/02/24 14:10 Temperature 97.2 F L 09/03/24 14:00 Pulse Rate 81 09/03/24 14:00 Respiratory Rate 18 09/03/24 14:00 Blood Pressure 122/65 09/03/24 14:00 Pulse Oximetry 100 09/03/24 14:00 Oxygen Delivery Room Air 09/02/24 20:37 Medical Decision Making MDM Narrative Medical decision making narrative: Initially unable to obtain vital signs. Not on anticoagulation per review of NH documentation. Patient was given Ativan to facilitate obtaining workup including labs and imaging. With this medication he is somnolent but protecting his airway. Normocytic anemia, stable from previous. Elevated CPK though not to a degree to suggest rhabdomyolysis. Patient had refused IV. Able to tolerate PO. Once able to obtain vital signs, noted that they are afebrile with vital signs within normal limits. In sum, patient has had frequent falls, anywhere from 6-14 in the past week by report from longterm/son. Patient denies this. There is no clear diagnosis of dementia/memory loss although this is strongly suspected and appears patient is likely no longer safe for assisted living. He has fallen several times in order presented to the emergency department once in the past week. For this reason, patient will require admission/observation admission for physical therapy/occupational therapy evaluation and recommendations for discharge planning. Son is in agreement. Stable for admission. Discussed with on-call hospitalist JUNIE. Differential Diagnosis Differential Diagnosis: intracranila hemorrhage; fracture; NPH; dementia/delirium; behavioral Vital Signs Vital Signs: Vital Signs Blood Pressure 141/60 H 09/02/24 14:10 Temperature 97.2 F L 09/03/24 14:00 Pulse Rate 81 09/03/24 14:00 Respiratory Rate 18 09/03/24 14:00 Blood Pressure 122/65 09/03/24 14:00 Pulse Oximetry 100 09/03/24 14:00 Oxygen Delivery Room Air 09/02/24 20:37 Lab Data Lab results reviewed: Yes I reviewed the patient's lab results. 09/03/24 05:52 09/03/24 05:52 Labs: Lab Results 09/02/24 09/02/24 09/02/24 Range/Units 13:08 13:09 15:59 WBC 7.6 (4.5-10.0) K/mm3 RBC 4.00 L (4.6-6.20) M/mm3 Hgb 13.4 L (14.0-18.0) g/dL Hct 40.4 L (42.0-52.0) % MCV 101.0 H (80-100) fl MCH 33.5 (26-34) pg MCHC 33.2 (32-36) g/dl RDW 13.4 (11.5-14.5) % Plt Count 155 (150-375) k/mm3 MPV 9.7 (7.4-10.4) fl Immature Gran % (Auto) 0.3 (0-0.5) % Neut % (Auto) 51.9 (45.5-73.1) % Lymph % (Auto) 32.6 (18.3-44.2) % [place] % (Auto) 11.3 H (2.6-8.5) % Eos % (Auto) 3.4 (0-4.4) % Baso % (Auto) 0.5 (0.2-1.2) % Lymph # (Auto) 2.47 (0.9-3.2) K/mm3 [place] # (Auto) 0.9 H (0.1-0.6) K/mm3 Eos # (Auto) 0.3 (0-0.3) K/mm3 Baso # (Auto) 0.0 (0.0-0.1) K/mm3 Abs Immat Gran (auto) 0.02 (0.00-0.031) K/mm3 Absolute Neuts (auto) 3.9 (1.3-6.7) K/mm3 Absolute Nucleated RBC 0.000 (0.0-0.012) K/mm3 Nucleated RBC % 0.0 (0.0-0.2) % PT 15.1 H (11.1-14.7) Seconds INR 1.2 APTT 32.9 (22.3-36.8) Seconds Sodium 140 (137-145) mmol/L Potassium 3.4 (3.4-5.0) mmol/L Chloride 105 (98-107) mmol/L Carbon Dioxide 25 (22-30) mmol/L Anion Gap 10 (4-12) mmol/L BUN 12 (9-20) mg/dL Creatinine 0.68 L (0.7-1.3) mg/dL Estim Creat Clear Calc Not Reportable Estimated GFR > 60 (59 - ) Glucose 99 (65-110) mg/dL Calcium 9.0 (8.4-10.2) mg/dL Magnesium 2.0 (1.6-2.3) mg/dL Total Bilirubin 1.8 H (0.2-1.3) mg/dL AST 50 (17-59) U/L ALT 25 (6-50) U/L Alkaline Phosphatase 91 (38-126) U/L Ammonia < 9 L (9-30) umol/L Total Creatine Kinase 568 H (55-170) U/L Total Protein 7.0 (6.3-8.2) g/dL Albumin 4.1 (3.5-5.1) g/dL TSH 1.440 (0.465-4.680) uIU/mL Urine Color Dark yellow (Yellow) Urine Appearance Clear (Clear) Urine pH 5.0 (5.0-9.0) Ur Specific [place] 1.019 (1.001-1.035) Urine Protein Negative (Negative) mg/dL Urine Glucose (UA) Negative (Negative) mg/dL Urine Ketones 1+ H (Negative) mg/dL Ur Blood (Man) Negative (Negative) Urine Nitrate Negative (Negative) Urine Bilirubin Negative (Negative) Urine Urobilinogen 2.0 H (<2.0) mg/dL Leukocyte Esterase Rfl Negative (Negative) ATIYA/UL Salicylates < 1.0 L (2-20) mg/dL Urine Opiates Screen Negative (Negative) Urine Methadone Screen Negative (Negative) Acetaminophen < 10 L (10-30) ug/mL Ur Barbiturates Screen Negative (Negative) Ur Phencyclidine Scrn Negative (Negative) Ur Amphetamine Screen Negative (Negative) U Benzodiazepines Scrn Negative (Negative) Urine Cocaine Screen Negative (Negative) U Cannabinoids Screen Negative (Negative) Ethyl Alcohol < 10 (<10) mg/dL 09/03/24 Range/Units 05:52 WBC 7.4 (4.5-10.0) K/mm3 RBC 3.73 L (4.6-6.20) M/mm3 Hgb 12.4 L (14.0-18.0) g/dL Hct 38.3 L (42.0-52.0) % MCV 102.7 H (80-100) fl MCH 33.2 (26-34) pg MCHC 32.4 (32-36) g/dl RDW 13.5 (11.5-14.5) % Plt Count 149 L (150-375) k/mm3 MPV 10.2 (7.4-10.4) fl Immature Gran % (Auto) 0.3 (0-0.5) % Neut % (Auto) 54.5 (45.5-73.1) % Lymph % (Auto) 29.1 (18.3-44.2) % [place] % (Auto) 10.9 H (2.6-8.5) % Eos % (Auto) 4.8 H (0-4.4) % Baso % (Auto) 0.4 (0.2-1.2) % Lymph # (Auto) 2.14 (0.9-3.2) K/mm3 [place] # (Auto) 0.8 H (0.1-0.6) K/mm3 Eos # (Auto) 0.4 H (0-0.3) K/mm3 Baso # (Auto) 0.0 (0.0-0.1) K/mm3 Abs Immat Gran (auto) 0.02 (0.00-0.031) K/mm3 Absolute Neuts (auto) 4.0 (1.3-6.7) K/mm3 Absolute Nucleated RBC 0.000 (0.0-0.012) K/mm3 Nucleated RBC % 0.0 (0.0-0.2) % PT (11.1-14.7) Seconds INR APTT (22.3-36.8) Seconds Sodium 140 (137-145) mmol/L Potassium 3.1 L (3.4-5.0) mmol/L Chloride 107 (98-107) mmol/L Carbon Dioxide 24 (22-30) mmol/L Anion Gap 9 (4-12) mmol/L BUN 9 (9-20) mg/dL Creatinine 0.72 (0.7-1.3) mg/dL Estim Creat Clear Calc 58 Estimated GFR > 60 (59 - ) Glucose 84 (65-110) mg/dL Calcium 8.6 (8.4-10.2) mg/dL Magnesium (1.6-2.3) mg/dL Total Bilirubin 1.7 H (0.2-1.3) mg/dL AST 38 (17-59) U/L ALT 21 (6-50) U/L Alkaline Phosphatase 81 (38-126) U/L Ammonia (9-30) umol/L Total Creatine Kinase 376 H (55-170) U/L Total Protein 6.1 L (6.3-8.2) g/dL Albumin 3.5 (3.5-5.1) g/dL TSH (0.465-4.680) uIU/mL Urine Color (Yellow) Urine Appearance (Clear) Urine pH (5.0-9.0) Ur Specific [place] (1.001-1.035) Urine Protein (Negative) mg/dL Urine Glucose (UA) (Negative) mg/dL Urine Ketones (Negative) mg/dL Ur Blood (Man) (Negative) Urine Nitrate (Negative) Urine Bilirubin (Negative) Urine Urobilinogen (<2.0) mg/dL Leukocyte Esterase Rfl (Negative) ATIYA/UL Salicylates (2-20) mg/dL Urine Opiates Screen (Negative) Urine Methadone Screen (Negative) Acetaminophen (10-30) ug/mL Ur Barbiturates Screen (Negative) Ur Phencyclidine Scrn (Negative) Ur Amphetamine Screen (Negative) U Benzodiazepines Scrn (Negative) Urine Cocaine Screen (Negative) U Cannabinoids Screen (Negative) Ethyl Alcohol (<10) mg/dL Imaging Data Radiologist's impression: IMPRESSION: No acute osseous abnormality cervical spine. Multilevel degenerative disc disease. Multilevel spinal canal stenosis and intervertebral foraminal narrowing. IMPRESSION: No acute intracranial findings. IMPRESSION: No acute cardiopulmonary pathology Discharge Plan Discharge Clinical Impression: Frequent falls, Behavior concern, Normocytic anemia, Elevated CPK Patient Disposition: Still a Patient Condition: Stable
[2024-09-02 14:10] VITALS: BP 141/60
--- NOTE | 2024-09-02 14:15 | PC.NURSE ---
Pt refusing to take tylenol at this time. Pt hostile and calling RN names.
--- NOTE | 2024-09-02 15:18 | PC.NURSE ---
continues to refuse care, son at bedside. Will not allow VS and refused tylenol told the nurse she was just a dumb blonde.
--- NOTE | 2024-09-02 15:26 | ECG_ITS ---
Test Date: 2024-09-02 18:22:20 Measurements Intervals [place] Rate: 58 P: 65 HI: 195 QRS: 15 QRSD: 105 T: 3 QT: 499 QTc: 492 Interpretive Statements SINUS BRADYCARDIA WITH OCCASIONAL VENTRICULAR PREMATURE COMPLEXES BORDERLINE ECG Compared to ECG 08/27/2024 15:38:48 Ventricular premature complex(es) now present Electronically Signed On 09-02-2024 20:24:54 CDT by Xiang Burt D.O.
[2024-09-02] MEDS: LORazepam INJ (*CRX) 2 MG/ML VIAL IM (15:49)
[2024-09-02 16:08] LABS: Basophils Percent Auto 0.5 % (0.2-1.2); Eosinophils Absolute Auto 0.3 K/mm3 (0-0.3); Eosinophils Percent Auto 3.4 % (0-4.4); Hematocrit 40.4 % (42.0-52.0); Hemoglobin 13.4 g/dL (14.0-18.0); Immature Granulocyte Absolute 0.02 K/mm3 (0.00-0.031); Immature Granulocyte Percent A 0.3 % (0-0.5); Lymphocytes Absolute Auto 2.47 K/mm3 (0.9-3.2); Lymphocytes Percent Auto 32.6 % (18.3-44.2); Mean Corpuscular HGB Conc 33.2 g/dl (32-36); Mean Corpuscular Hemoglobin 33.5 pg (26-34); Mean Platelet Volume 9.7 fl (7.4-10.4); Monocytes Absolute Auto 0.9 K/mm3 (0.1-0.6); Monocytes Percent Auto 11.3 % (2.6-8.5); Neutrophils Absolute Auto 3.9 K/mm3 (1.3-6.7); Neutrophils Percent Auto 51.9 % (45.5-73.1); Platelet Count Result 155 k/mm3 (150-375); Red Cell Distribution Width 13.4 % (11.5-14.5); White Blood Count 7.6 K/mm3 (4.5-10.0)
[2024-09-02 16:19] LABS: Acetaminophen < 10 ug/mL (10-30); Alanine Aminotransferase 25 U/L (6-50); Albumin Level 4.1 g/dL (3.5-5.1); Alkaline Phosphatase 91 U/L (38-126); Ammonia < 9 umol/L (9-30); Anion Gap 10 mmol/L (4-12); Aspartate Amino Transferase 50 U/L (17-59); Bilirubin,Total 1.8 mg/dL (0.2-1.3); Blood Urea Nitrogen 12 mg/dL (9-20); Carbon Dioxide 25 mmol/L (22-30); Chloride 105 mmol/L (98-107); Creatine Kinase 568 U/L (55-170); Estimated Glomerular Filt Rate > 60; Ethanol < 10 mg/dL (<10); Glucose 99 mg/dL (65-110); Potassium 3.4 mmol/L (3.4-5.0); Salicylate < 1.0 mg/dL (2-20); Sodium 140 mmol/L (137-145)
[2024-09-02 16:23] LABS: INR 1.2; Prothrombin Time 15.1 Seconds (11.1-14.7)
[2024-09-02 16:24] VITALS: BP 141/60; PULSE 72; RESP 16; TEMP 36.3; O2SAT 97
[2024-09-02 16:24] LABS: Partial Thromboplastin Time 32.9 Seconds (22.3-36.8)
[2024-09-02 16:54] LABS: Amphetamine Screen Urine Negative (Negative); Benzodiazepines Screen Urine Negative (Negative); Cannabinoid Screen Urine Negative (Negative); Cocaine Screen Urine Negative (Negative); Methadone Screen Urine Negative (Negative); Opiate Screen Urine Negative (Negative); Phencyclidine Screen Urine Negative (Negative)
[2024-09-02 17:08] LABS: Barbiturate Screen Urine Negative (Negative)
--- NOTE | 2024-09-02 18:33 | PC.NURSE ---
pt very sedated from IM ativan, just removed clothes, placed SLN and completed EKG. Pt will wake up and when he notices staff touching him and immediately beomes resistive to care but will doze off quickly
[2024-09-02 18:35] VITALS: BP 103/58; PULSE 58; RESP 16; TEMP 36.6; O2SAT 98
[2024-09-02 19:13] VITALS: BP 101/56; PULSE 54; RESP 18; O2SAT 98
[2024-09-02 20:03] VITALS: BP 104/56; PULSE 67; RESP 18; O2SAT 96
[2024-09-02 20:36] VITALS: BMI 26.0
[2024-09-02 20:45] VITALS: BP 122/57; PULSE 63; RESP 18; TEMP 36.4; O2SAT 95
--- NOTE | 2024-09-02 21:01 | P.HP_ITS ---
H&P: HPI History of Present Illness Date/Time: 09/02/24 21:01 Chief Complaint: Falls and Combative Narrative: This is an 88 year old male who currently resides at [facility] who was sent to the ER for what staff said was normal VS, but VS were normal for EMS and normal in the ER. It was determined that he had been combative and derogatory towards staff at [facility] as well as towards EMS s taf and [facility] will not take him back. They report multiple falls recently and given his confusion and being combative he is no longer safe to live in that environment. He has associated medical hx of Dementia, Ataxia, Obesity, OA, HLD, and BPH. In the ER his workup was performed with findings of normal CBC, CMP, Magnesium, UA, TSH, UDS, Alcohol and Coags. EKG showed SB 58 bpm with occasional PVCs. CXR was negative, CT head and CT C-spine were negative. His CPK was mildly elevated at 568, but not enough to be considered Rhabdo. He is being admitted for PT/OT eval and care coordination assistance at admission to SNF as he is unsafe to return to assisted living at this time. Review of Systems Review of Systems: ROS unobtainable: Yes unobtainable due to mental status PMFSH Past Medical History Medical History Falls frequently Ataxia Obesity Osteoarthritis BPH (benign prostatic hyperplasia) Dyslipidemia Social History Social History Social History: POLST signed 08/09/24 lists Do Not Attempt Resuscitation/DNR with comfort-focused treatment Smoking status: Former smoker Tobacco type: cigars Second hand tobacco smoke exposure: No Alcohol intake: current Alcohol use details: Wine Substance use: never Substance use type: does not use Lack of Transportation: No Lack of Food: Never True Current Housing: Decline to Answer Concerned About Future Housing: Decline to Answer Difficulty Paying Gas/Electric Bills: Decline to Answer Difficulty Paying for Meds: Decline to Answer Currently Unemployed: Decline to Answer Education: Decline to Answer Difficulty w/ Childcare or Family Care: Decline to Answer Living arrangements: shelter Additional living arrangements comments: [facility] Spiritual care concerns: No Meds Home Medications and Allergies Home Medications ?Medication ?Instructions ?Recorded ?Confirmed ?Type aspirin 81 mg tablet,delayed 81 mg PO DAILY 04/27/19 06/16/24 History release (Adult Low Dose Aspirin) lutein 10 mg tablet 10 mg PO DAILY 10/26/20 06/16/24 History tamsulosin 0.4 mg capsule 0.8 mg (2 x 0.4 mg) PO DAILY #180 01/03/23 06/16/24 Rx caps lovastatin 20 mg tablet 20 mg PO DAILY #90 tabs 06/12/23 06/16/24 Rx mecobalamin (vitamin B12) 2,500 mcg PO 10/28/23 06/16/24 History mcg chewable tablet donepezil 5 mg tablet See Rx Instructions .Route 04/14/24 06/16/24 Rx .COMPLEX #90 tabs memantine 10 mg tablet 10 mg PO BID #180 tabs 06/16/24 06/16/24 Rx quetiapine 25 mg tablet 25 mg PO BID #60 tabs 06/16/24 06/16/24 Rx doxepin 10 mg capsule 10 mg PO QHS #90 caps 08/04/24 08/04/24 Rx Allergies Allergy/AdvReac Type Severity Reaction Status Date / Time No Known Allergies Allergy Verified 06/16/24 13:46 Vital Signs Vital Signs - 24 hr 09/02/24 14:10 09/02/24 16:24 09/02/24 18:35 Temperature 97.3 F L 97.9 F Pulse Rate 72 58 L Respiratory Rate 16 16 Blood Pressure 141/60 H 141/60 H 103/58 L Pulse Oximetry 97 98 Oxygen Delivery 09/02/24 19:13 09/02/24 20:03 09/02/24 20:37 Temperature Pulse Rate 54 L 67 Respiratory Rate 18 18 Blood Pressure 101/56 L 104/56 L Pulse Oximetry 98 96 Oxygen Delivery Room Air 09/02/24 20:45 Temperature 97.5 F L Pulse Rate 63 Respiratory Rate 18 Blood Pressure 122/57 L Pulse Oximetry 95 Oxygen Delivery Exam Const: General: comfortable and no acute distress Other: Elderly male pt lying supine at this time and does not appear to be in any distress. He is not cooperative with requests for most of my assessment. HENMT: Face/Nose/Sinus: Normal nares present Other: Refuses to open his mouth and purses his lips when asked to open. Eyes: Other: Will not open eyes for assessment. Closes tightly when asked to open eyes. Neck: Carotids: no bruits Lymphatic: lymphadenopathy not noted Resp: Effort & Inspection: abnormal respiratory effort (Will not follow commands to breathe deeply.) Auscultation: diminished lung sounds (Diminished throughout but due to poor inspiratory effort, purposely. ) Other: Lung sounds otherwise are CTAB. Cardio: Rate: regular rate Rhythm: regular rhythm Heart sounds: no gallops, no murmurs and no rubs GI: GI Palp: Yes Soft to palpation and No Tenderness to palpation present (GI) Auscultation: normal bowel sounds Skin: General skin exam: normal color, no rashes or lesions noted and no erythema Wounds: no wounds Neuro: Other: Pt responds to painful stimuli by pushing me away and will not cooperate to assess Neuro status. He was much of the same in the ER for staff, but did speak to ER Physician as noted. He moves BLE and BUE fully when he is provoked in another way such as attempting to turn him. He has intact strength bilaterally. Extrem: General: normal to inspection, no edema and pedal edema Other: Trace bilateral pedal edema, pitting 1+ Psych: Mental Status: mental status grossly abnormal (Not cooperative) H&P: Results Labs Labs: Short CBC 09/02/24 Range/Units 15:59 WBC 7.6 (4.5-10.0) K/mm3 Hgb 13.4 L (14.0-18.0) g/dL Hct 40.4 L (42.0-52.0) % Plt Count 155 (150-375) k/mm3 BMP 09/02/24 15:59 Sodium 140 Potassium 3.4 Chloride 105 Carbon Dioxide 25 BUN 12 Creatinine 0.68 L Glucose 99 Calcium 9.0 Cardiac Enzymes 09/02/24 Range/Units 15:59 Total Creatine Kinase 568 H (55-170) U/L Liver Function 09/02/24 Range/Units 15:59 Total Bilirubin 1.8 H (0.2-1.3) mg/dL AST 50 (17-59) U/L ALT 25 (6-50) U/L Alkaline Phosphatase 91 (38-126) U/L Albumin 4.1 (3.5-5.1) g/dL Urine 09/02/24 Range/Units 13:09 Urine Color Dark yellow (Yellow) Urine Appearance Clear (Clear) Urine pH 5.0 (5.0-9.0) Ur Specific [place] 1.019 (1.001-1.035) Urine Protein Negative (Negative) mg/dL Urine Glucose (UA) Negative (Negative) mg/dL Assessment and Plan Assessment and plan (1) Behavior concern: Code(s): R46.89 - Other symptoms and signs involving appearance and behavior Status: Acute Assessment and Plan: * As noted in the HPI, pt's behavior is not cooperative at this time. * He is a safety concern to return to Assisted Living, especially has he has had multiple falls. * Care coordination consulted for placement. * Fall precautions * Seroquel and doxepin ordered for sleep. (2) Frequent falls: Code(s): R29.6 - Repeated falls Status: Acute Assessment and Plan: * Multiple recent falls according to facility. * Fall precautions * See #1 (3) Elevated CPK: Code(s): R74.8 - Abnormal levels of other serum enzymes Status: Acute Assessment and Plan: * Elevated at 568. * NS at 75 ml/hr ordered. * Recheck with AM labs (4) Dementia: Code(s): F03.90 - Unspecified dementia, unspecified severity, without behavioral disturbance, psychotic disturbance, mood disturbance, and anxiety Status: Chronic Assessment and Plan: * Continue dementia medications once they are verified. * Provide for safety. (5) Dyslipidemia: Code(s): E78.5 - Hyperlipidemia, unspecified Status: Chronic Assessment and Plan: * Heart Healthy diet * Continue statin when meds are verified. (6) BPH (benign prostatic hyperplasia): Qualifiers: Lower urinary tract symptom presence: symptoms present Lower urinary tract symptom detail: nocturia Qualified Code(s): N40.1 - Benign prostatic hyperplasia with lower urinary tract symptoms; R35.1 - Nocturia Code(s): N40.0 - Benign prostatic hyperplasia without lower urinary tract symptoms Status: Chronic Assessment and Plan: * Continue Flomax when meds are verified. (7) Normocytic anemia: Code(s): D64.9 - Anemia, unspecified Status: Chronic Assessment and Plan: * Stable as per CBC. * Monitor with daily labs. * Monitor for any s/s of bleeding. Quality VTE Prophylaxis VTE prophylaxis: mechanical ordered Hospitalist MIPS Advance Care Plan I have confirmed that the patient's Advanced Care Plan is present, code status is documented, or surrogate decision maker is listed in patient medical record.: Yes Medication Reconciliation I have utilized all available resources to obtain, update and review the patients current medications (includes all prescriptions, OTC, herbals, cannabis, and nutritional supplements).: Yes
[2024-09-02] MEDS: SODIUM CHLORIDE 0.9% IV 1,000 ML 75 ML IV CONT (21:52)
--- NOTE | 2024-09-02 22:27 | ADMGEN ---
This patient, Skylar Ramirez, was admitted to Medical Room 248-01. Patient/family oriented to hospital policies and general routines including ID bracelet, bed and alarms, visiting hours, pain management, procedures, bathroom and other care routines, personal items, smoking policy, room service/diet, and visiting hours. Information on how to activate the Rapid Response Team has been discussed. Patient/Family are encouraged to report perceived risks to care and to ask questions if they do not understand what they are told or what they should do.
[2024-09-03 05:00] VITALS: BP 136/57; PULSE 78; RESP 18; O2SAT 96
[2024-09-03 06:20] LABS: Basophils Percent Auto 0.4 % (0.2-1.2); Eosinophils Absolute Auto 0.4 K/mm3 (0-0.3); Eosinophils Percent Auto 4.8 % (0-4.4); Hematocrit 38.3 % (42.0-52.0); Hemoglobin 12.4 g/dL (14.0-18.0); Immature Granulocyte Absolute 0.02 K/mm3 (0.00-0.031); Immature Granulocyte Percent A 0.3 % (0-0.5); Lymphocytes Absolute Auto 2.14 K/mm3 (0.9-3.2); Lymphocytes Percent Auto 29.1 % (18.3-44.2); Mean Corpuscular HGB Conc 32.4 g/dl (32-36); Mean Corpuscular Hemoglobin 33.2 pg (26-34); Mean Corpuscular Volume 102.7 fl (80-100); Mean Platelet Volume 10.2 fl (7.4-10.4); Monocytes Absolute Auto 0.8 K/mm3 (0.1-0.6); Monocytes Percent Auto 10.9 % (2.6-8.5); Neutrophils Percent Auto 54.5 % (45.5-73.1); Platelet Count Result 149 k/mm3 (150-375); Red Blood Count 3.73 M/mm3 (4.6-6.20); Red Cell Distribution Width 13.5 % (11.5-14.5); White Blood Count 7.4 K/mm3 (4.5-10.0)
[2024-09-03 06:45] LABS: Alanine Aminotransferase 21 U/L (6-50); Albumin Level 3.5 g/dL (3.5-5.1); Alkaline Phosphatase 81 U/L (38-126); Anion Gap 9 mmol/L (4-12); Aspartate Amino Transferase 38 U/L (17-59); Bilirubin,Total 1.7 mg/dL (0.2-1.3); Blood Urea Nitrogen 9 mg/dL (9-20); Calcium 8.6 mg/dL (8.4-10.2); Carbon Dioxide 24 mmol/L (22-30); Chloride 107 mmol/L (98-107); Creatine Kinase 376 U/L (55-170); Estimated CRCL calculation 58 ml/min; Estimated Glomerular Filt Rate > 60; Glucose 84 mg/dL (65-110); Potassium 3.1 mmol/L (3.4-5.0); Sodium 140 mmol/L (137-145); Total Protein 6.1 g/dL (6.3-8.2)
--- NOTE | 2024-09-03 08:00 | PM.IMPN ---
Progress Note: A&P Assessment and Plan (1) Behavior concern: Code(s): R46.89 - Other symptoms and signs involving appearance and behavior Status: Acute Assessment and Plan: UDS and toxicology unremarkable No concerns for infection, UA and chest XR unremarkable Seroquel and doxepin ordered for sleep. [facility] will not take patient back as there is a safety concern, especially as he has had multiple falls. Care coordination consulted for placement. (2) Frequent falls: Code(s): R29.6 - Repeated falls Status: Acute Assessment and Plan: Multiple recent falls according to facility. CPK slightly elevated, now downtrending with fluids. Will stop IV fluids as patient ripped out his IV and is drinking well. Chest XR unremarkable Head CT showed no acute intracranial findings C spine CT showed no acute osseous abnormality but multilevel degenerative disc disease with spinal canal stenosis and intervertebral foraminal narrowing Fall precautions (3) Elevated CPK: Code(s): R74.8 - Abnormal levels of other serum enzymes Status: Acute Assessment and Plan: Elevated at 568 >> 376 Will stop IV fluids as patient ripped out his IV and is drinking well. (4) Dementia: Code(s): F03.90 - Unspecified dementia, unspecified severity, without behavioral disturbance, psychotic disturbance, mood disturbance, and anxiety Status: Chronic Assessment and Plan: Chronic, continue dementia medications (5) Dyslipidemia: Code(s): E78.5 - Hyperlipidemia, unspecified Status: Chronic Assessment and Plan: Heart Healthy diet Continue statin (6) BPH (benign prostatic hyperplasia): Qualifiers: Lower urinary tract symptom detail: nocturia Lower urinary tract symptom presence: symptoms present Qualified Code(s): N40.1 - Benign prostatic hyperplasia with lower urinary tract symptoms; R35.1 - Nocturia Code(s): N40.0 - Benign prostatic hyperplasia without lower urinary tract symptoms Status: Chronic Assessment and Plan: Continue Flomax (7) Normocytic anemia: Code(s): D64.9 - Anemia, unspecified Status: Chronic Assessment and Plan: H/H appears at baseline. No signs of active bleeding. Monitor with daily labs. Monitor for any s/s of bleeding. Time Spent With Patient Time with patient: 25 - 35 minutes Subjective Date/time seen: 09/03/24 08:00 Interval history: 88 year old male with past medical history of dyslipidemia, BPH, dementia with hallucinations, and osteoarthritis presents to the hospital from [facility] for abnormal labs. Patient is pleasant lying comfortably in bed. He is cooperative throughout the assessment is alert and oriented x2. He has no complaints at this time denying chest pain, shortness a breath, palpitations, nausea/vomiting, dizziness/lightheadedness, abdominal pain. Patient continues to states that he wishes to return back to the [facility] per chart review the facility will not accept patient back. Care coordination is following. Review of Systems Review of Systems: All systems reviewed & are unremarkable except as noted in HPI and below Exam Narrative: AF HR 78 RR 18 SPO2 96 BP 136/57 General: male in no acute respiratory distress who is nontoxic appearing, lying semi recumbent in bed. HEENT: Normocephalic. Atraumatic. Extraocular movement intact. Sclera clear and anicteric. No facial asymmetry. Chest: Lungs are clear to auscultation bilaterally. No wheezes or crackles. CV: Heart was regular rate and rhythm. Abd: Abdomen was soft. Nontender. Nondistended. Positive bowel sounds. Ext: No clubbing, cyanosis, or edema. DP pulses bilaterally. Neuro: Patient is alert and oriented x2 (person, place). Speech is clear. Psych: Patient is pleasant and cooperative at time of assessment Objective Data Vital Signs Vital Signs: Vital Signs - 24 hr 09/02/24 14:10 09/02/24 16:24 09/02/24 18:35 Temperature 97.3 F L 97.9 F Pulse Rate 72 58 L Respiratory Rate 16 16 Blood Pressure 141/60 H 141/60 H 103/58 L Pulse Oximetry 97 98 Oxygen Delivery 09/02/24 19:13 09/02/24 20:03 09/02/24 20:37 Temperature Pulse Rate 54 L 67 Respiratory Rate 18 18 Blood Pressure 101/56 L 104/56 L Pulse Oximetry 98 96 Oxygen Delivery Room Air 09/02/24 20:45 09/03/24 05:00 Temperature 97.5 F L Pulse Rate 63 78 Respiratory Rate 18 18 Blood Pressure 122/57 L 136/57 L Pulse Oximetry 95 96 Oxygen Delivery Intake/Output Intake/Output: Intake & Output 08/31/24 09/01/24 09/02/24 09/03/24 23:59 23:59 23:59 23:59 Intake Total 50 Output Total 250 Balance -200 Meds/Results Medications: Active Medications Generic Name Dose Route Start Last Admin Trade Name Freq PRN Reason Stop Dose Admin Acetaminophen 650 mg 09/02/24 17:57 Acetaminophen 325 Mg Tablet PO Q4H PRN Mild Pain (1-3) or Fever Doxepin HCl 10 mg 09/03/24 21:00 Doxepin Hcl 10 Mg Capsule PO HS CORTES Sodium Chloride 1,000 mls @ 75 mls/hr 09/02/24 21:25 09/02/24 21:52 Normal Saline Iv IV CONT 75 mls/hr .[id number] CORTES Administration Ondansetron HCl 4 mg 09/02/24 17:57 Ondansetron Inj 4 Mg/2 Ml Vial IV PUSH Q4H PRN Nausea Quetiapine Fumarate 25 mg 09/03/24 09:00 Quetiapine Fumarate 25 Mg Tablet PO Q12HR [facility] Radiology Results: ITS Impressions Head CT 09/02/24 15:00 IMPRESSION: No acute intracranial findings. Cervical Spine CT 09/02/24 15:21 IMPRESSION: No acute osseous abnormality cervical spine. Multilevel degenerative disc disease. Multilevel spinal canal stenosis and intervertebral foraminal narrowing. Chest X-Ray 09/02/24 15:39 IMPRESSION: No acute cardiopulmonary pathology Labs Labs: Laboratory Results - last 24 hr 09/02/24 09/02/24 09/02/24 13:08 13:09 15:59 WBC 7.6 RBC 4.00 L Hgb 13.4 L Hct 40.4 L MCV 101.0 H MCH 33.5 MCHC 33.2 RDW 13.4 Plt Count 155 MPV 9.7 Immature Gran % (Auto) 0.3 Neut % (Auto) 51.9 Lymph % (Auto) 32.6 [place] % (Auto) 11.3 H Eos % (Auto) 3.4 Baso % (Auto) 0.5 Lymph # (Auto) 2.47 [place] # (Auto) 0.9 H Eos # (Auto) 0.3 Baso # (Auto) 0.0 Abs Immat Gran (auto) 0.02 Absolute Neuts (auto) 3.9 Absolute Nucleated RBC 0.000 Nucleated RBC % 0.0 PT 15.1 H INR 1.2 APTT 32.9 Sodium 140 Potassium 3.4 Chloride 105 Carbon Dioxide 25 Anion Gap 10 BUN 12 Creatinine 0.68 L Estim Creat Clear Calc Not Reportable Estimated GFR > 60 Glucose 99 Calcium 9.0 Magnesium 2.0 Total Bilirubin 1.8 H AST 50 ALT 25 Alkaline Phosphatase 91 Ammonia < 9 L Total Creatine Kinase 568 H Total Protein 7.0 Albumin 4.1 TSH 1.440 Urine Color Dark yellow Urine Appearance Clear Urine pH 5.0 Ur Specific [place] 1.019 Urine Protein Negative Urine Glucose (UA) Negative Urine Ketones 1+ H Ur Blood (Man) Negative Urine Nitrate Negative Urine Bilirubin Negative Urine Urobilinogen 2.0 H Leukocyte Esterase Rfl Negative Salicylates < 1.0 L Urine Opiates Screen Negative Urine Methadone Screen Negative Acetaminophen < 10 L Ur Barbiturates Screen Negative Ur Phencyclidine Scrn Negative Ur Amphetamine Screen Negative U Benzodiazepines Scrn Negative Urine Cocaine Screen Negative U Cannabinoids Screen Negative Ethyl Alcohol < 10 09/03/24 05:52 WBC 7.4 RBC 3.73 L Hgb 12.4 L Hct 38.3 L MCV 102.7 H MCH 33.2 MCHC 32.4 RDW 13.5 Plt Count 149 L MPV 10.2 Immature Gran % (Auto) 0.3 Neut % (Auto) 54.5 Lymph % (Auto) 29.1 [place] % (Auto) 10.9 H Eos % (Auto) 4.8 H Baso % (Auto) 0.4 Lymph # (Auto) 2.14 [place] # (Auto) 0.8 H Eos # (Auto) 0.4 H Baso # (Auto) 0.0 Abs Immat Gran (auto) 0.02 Absolute Neuts (auto) 4.0 Absolute Nucleated RBC 0.000 Nucleated RBC % 0.0 PT INR APTT Sodium 140 Potassium 3.1 L Chloride 107 Carbon Dioxide 24 Anion Gap 9 BUN 9 Creatinine 0.72 Estim Creat Clear Calc 58 Estimated GFR > 60 Glucose 84 Calcium 8.6 Magnesium Total Bilirubin 1.7 H AST 38 ALT 21 Alkaline Phosphatase 81 Ammonia Total Creatine Kinase 376 H Total Protein 6.1 L Albumin 3.5 TSH Urine Color Urine Appearance Urine pH Ur Specific [place] Urine Protein Urine Glucose (UA) Urine Ketones Ur Blood (Man) Urine Nitrate Urine Bilirubin Urine Urobilinogen Leukocyte Esterase Rfl Salicylates Urine Opiates Screen Urine Methadone Screen Acetaminophen Ur Barbiturates Screen Ur Phencyclidine Scrn Ur Amphetamine Screen U Benzodiazepines Scrn Urine Cocaine Screen U Cannabinoids Screen Ethyl Alcohol Quality VTE Prophylaxis VTE prophylaxis: mechanical ordered
[2024-09-03] MEDS: QUEtiapine FUMARATE 25 MG TABLET PO ×2 (08:45→17:10)
[2024-09-03] MEDS: POTASSIUM CHLORIDE 20 MEQ ER TABLET 40 MEQ PO (08:46)
[2024-09-03] MEDS: SODIUM CHLORIDE 0.9% IV 1,000 ML 75 ML IV CONT (11:04)
[2024-09-03 14:00] VITALS: BP 122/65; PULSE 81; RESP 18; TEMP 36.2; O2SAT 100
[2024-09-03 21:00] VITALS: PULSE 76; RESP 18; O2SAT 100
[2024-09-03 21:29] VITALS: BP 150/71; PULSE 76; RESP 18; TEMP 36.6; O2SAT 100
[2024-09-03 21:30] VITALS: O2SAT 100
[2024-09-04 05:44] LABS: Basophils Absolute Auto 0.1 K/mm3 (0.0-0.1); Basophils Percent Auto 0.6 % (0.2-1.2); Eosinophils Absolute Auto 0.4 K/mm3 (0-0.3); Eosinophils Percent Auto 5.4 % (0-4.4); Hematocrit 38.9 % (42.0-52.0); Hemoglobin 12.8 g/dL (14.0-18.0); Immature Granulocyte Absolute 0.01 K/mm3 (0.00-0.031); Immature Granulocyte Percent A 0.1 % (0-0.5); Lymphocytes Absolute Auto 2.43 K/mm3 (0.9-3.2); Lymphocytes Percent Auto 31.2 % (18.3-44.2); Mean Corpuscular HGB Conc 32.9 g/dl (32-36); Mean Corpuscular Hemoglobin 33.3 pg (26-34); Mean Corpuscular Volume 101.3 fl (80-100); Mean Platelet Volume 9.9 fl (7.4-10.4); Monocytes Percent Auto 12.5 % (2.6-8.5); Neutrophils Absolute Auto 3.9 K/mm3 (1.3-6.7); Neutrophils Percent Auto 50.2 % (45.5-73.1); Platelet Count Result 146 k/mm3 (150-375); Red Blood Count 3.84 M/mm3 (4.6-6.20); Red Cell Distribution Width 13.6 % (11.5-14.5); White Blood Count 7.8 K/mm3 (4.5-10.0)
[2024-09-04 05:54] LABS: Alanine Aminotransferase 23 U/L (6-50); Albumin Level 3.7 g/dL (3.5-5.1); Alkaline Phosphatase 90 U/L (38-126); Anion Gap 7 mmol/L (4-12); Aspartate Amino Transferase 40 U/L (17-59); Bilirubin,Total 1.5 mg/dL (0.2-1.3); Blood Urea Nitrogen 8 mg/dL (9-20); Calcium 8.6 mg/dL (8.4-10.2); Carbon Dioxide 27 mmol/L (22-30); Chloride 107 mmol/L (98-107); Estimated CRCL calculation 60 ml/min; Estimated Glomerular Filt Rate > 60; Glucose 91 mg/dL (65-110); Potassium 3.4 mmol/L (3.4-5.0); Sodium 141 mmol/L (137-145); Total Protein 6.4 g/dL (6.3-8.2)
[2024-09-04 06:00] VITALS: BP 136/44; PULSE 57; RESP 16; TEMP 36.7; O2SAT 97
--- NOTE | 2024-09-04 08:00 | PM.IMPN ---
Progress Note: A&P Assessment and Plan (1) Behavior concern: Code(s): R46.89 - Other symptoms and signs involving appearance and behavior Status: Acute Assessment and Plan: UDS and toxicology unremarkable No concerns for infection, UA and chest XR unremarkable Head CT unremarkable MRI brain ordered to further rule out stroke as per son patient had a significant mental status change in short period of time Seroquel and doxepin ordered for sleep. Possible that the Seroquel during the day is causing some of the patients increased confusion and falls. Will change Seroquel to PRN for agitation during the day and continue the nightly dose. Care coordination following. Patient AOx3 on assessment. Remains calm and cooperative. (2) Frequent falls: Code(s): R29.6 - Repeated falls Status: Acute Assessment and Plan: Multiple recent falls according to facility. CPK slightly elevated, now downtrending with fluids. Will stop IV fluids as patient ripped out his IV and is drinking well. Chest XR unremarkable Head CT showed no acute intracranial findings C spine CT showed no acute osseous abnormality but multilevel degenerative disc disease with spinal canal stenosis and intervertebral foraminal narrowing Fall precautions PT/OT evaluated patient, recommending to return to [place] for mobility assist and care Possible that the Seroquel during the day is causing some of the patients increased confusion and falls. Will change Seroquel to PRN for agitation during the day and continue the nightly dose. (3) Elevated CPK: Code(s): R74.8 - Abnormal levels of other serum enzymes Status: Acute Assessment and Plan: Elevated at 568 >> 376 IV fluids DC, patient having adequate oral intake. (4) Dementia: Code(s): F03.90 - Unspecified dementia, unspecified severity, without behavioral disturbance, psychotic disturbance, mood disturbance, and anxiety Status: Chronic Assessment and Plan: Chronic, continue dementia medications (5) Dyslipidemia: Code(s): E78.5 - Hyperlipidemia, unspecified Status: Chronic Assessment and Plan: Heart Healthy diet Continue statin (6) BPH (benign prostatic hyperplasia): Qualifiers: Lower urinary tract symptom detail: nocturia Lower urinary tract symptom presence: symptoms present Qualified Code(s): N40.1 - Benign prostatic hyperplasia with lower urinary tract symptoms; R35.1 - Nocturia Code(s): N40.0 - Benign prostatic hyperplasia without lower urinary tract symptoms Status: Chronic Assessment and Plan: Continue Flomax (7) Normocytic anemia: Code(s): D64.9 - Anemia, unspecified Status: Chronic Assessment and Plan: H/H appears at baseline. No signs of active bleeding. Monitor with daily labs. Monitor for any s/s of bleeding. Time Spent With Patient Time with patient: 25 - 35 minutes Subjective Date/time seen: 09/04/24 08:00 Interval history: 88 year old male with past medical history of dyslipidemia, BPH, dementia with hallucinations, and osteoarthritis presents to the hospital from [facility] for abnormal labs. Patient is pleasant sitting up comfortably in his chair. At time of assessment he is alert and oriented x3 but noticeably confused throughout the assessment. He has no complaints denying chest pain, shortness of breath, palpitations, nausea/vomiting, abdominal pain, and dizziness/lightheadedness. Review of Systems Review of Systems: All systems reviewed & are unremarkable except as noted in HPI and below Exam Narrative: AF HR 75 RR 16 SpO2 99 BP 140/73 General: male in no acute respiratory distress who is nontoxic appearing, sitting up in chair HEENT: Normocephalic. Atraumatic. Extraocular movement intact. Sclera clear and anicteric. No facial asymmetry. Chest: Lungs are clear to auscultation bilaterally. No wheezes or crackles. CV: Heart was regular rate and rhythm. Abd: Abdomen was soft. Nontender. Nondistended. Positive bowel sounds. Ext: No clubbing, cyanosis, or edema. DP pulses bilaterally. Neuro: Patient is alert and oriented x3 (person, place, year). Speech is clear. Strength is symmetrical to the upper and lower extremities with pushes/pulls. Psych: Patient is pleasant and cooperative at time of assessment Objective Data Vital Signs Vital Signs: Vital Signs - 24 hr 09/03/24 14:00 09/03/24 21:00 09/03/24 21:29 Temperature 97.2 F L 97.8 F Pulse Rate 81 76 76 Respiratory Rate 18 18 18 Blood Pressure 122/65 150/71 H Pulse Oximetry 100 100 100 Oxygen Delivery Room Air 09/03/24 21:30 09/04/24 06:00 Temperature 98.1 F Pulse Rate 57 L Respiratory Rate 16 Blood Pressure 136/44 L Pulse Oximetry 100 97 Oxygen Delivery Room Air Intake/Output Intake/Output: Intake & Output 09/01/24 09/02/24 09/03/24 09/04/24 23:59 23:59 23:59 23:59 Intake Total 1531.3 Output Total 800 Balance 731.3 Meds/Results Medications: Active Medications Generic Name Dose Route Start Last Admin Trade Name Freq PRN Reason Stop Dose Admin Acetaminophen 650 mg 09/02/24 17:57 Acetaminophen 325 Mg Tablet PO Q4H PRN Mild Pain (1-3) or Fever Doxepin HCl 10 mg 09/03/24 21:00 09/03/24 20:59 Doxepin Hcl 10 Mg Capsule PO Not Given HS CORTES Ondansetron HCl 4 mg 09/02/24 17:57 Ondansetron Inj 4 Mg/2 Ml Vial IV PUSH Q4H PRN Nausea Quetiapine Fumarate 25 mg 09/03/24 21:00 09/03/24 20:59 Quetiapine Fumarate 25 Mg Tablet PO Not Given HS CORTES Quetiapine Fumarate 25 mg 09/03/24 16:36 09/03/24 17:10 Quetiapine Fumarate 25 Mg Tablet PO 25 mg DAILY PRN Administration agitation Radiology Results: ITS Impressions Head CT 09/02/24 15:00 IMPRESSION: No acute intracranial findings. Cervical Spine CT 09/02/24 15:21 IMPRESSION: No acute osseous abnormality cervical spine. Multilevel degenerative disc disease. Multilevel spinal canal stenosis and intervertebral foraminal narrowing. Chest X-Ray 09/02/24 15:39 IMPRESSION: No acute cardiopulmonary pathology Labs Labs: Laboratory Results - last 24 hr 09/04/24 05:20 WBC 7.8 RBC 3.84 L Hgb 12.8 L Hct 38.9 L MCV 101.3 H MCH 33.3 MCHC 32.9 RDW 13.6 Plt Count 146 L MPV 9.9 Immature Gran % (Auto) 0.1 Neut % (Auto) 50.2 Lymph % (Auto) 31.2 [place] % (Auto) 12.5 H Eos % (Auto) 5.4 H Baso % (Auto) 0.6 Lymph # (Auto) 2.43 [place] # (Auto) 1.0 H Eos # (Auto) 0.4 H Baso # (Auto) 0.1 Abs Immat Gran (auto) 0.01 Absolute Neuts (auto) 3.9 Absolute Nucleated RBC 0.000 Nucleated RBC % 0.0 Sodium 141 Potassium 3.4 Chloride 107 Carbon Dioxide 27 Anion Gap 7 BUN 8 L Creatinine 0.70 Estim Creat Clear Calc 60 Estimated GFR > 60 Glucose 91 Calcium 8.6 Total Bilirubin 1.5 H AST 40 ALT 23 Alkaline Phosphatase 90 Total Protein 6.4 Albumin 3.7 Quality VTE Prophylaxis VTE prophylaxis: mechanical ordered
[2024-09-04] MEDS: MEMANTINE 10 MG TABLET PO ×2 (08:53→16:29)
[2024-09-04] MEDS: LOVASTATIN 20 MG TABLET PO (08:53)
[2024-09-04] MEDS: TAMSULOSIN HCL 0.4 MG CAPSULE 0.8 MG PO (08:53)
[2024-09-04 14:00] VITALS: BP 140/73; PULSE 75; RESP 16; TEMP 36.7; O2SAT 99
[2024-09-04 19:39] VITALS: BP 155/76; PULSE 64; RESP 17; TEMP 36.7; O2SAT 98
[2024-09-04 20:45] VITALS: PULSE 64; RESP 17; O2SAT 98
[2024-09-04 21:38] VITALS: O2SAT 98
[2024-09-05 05:11] VITALS: BP 153/78; PULSE 70; RESP 18; TEMP 36.6; O2SAT 95
[2024-09-05 05:41] LABS: Basophils Absolute Auto 0.1 K/mm3 (0.0-0.1); Basophils Percent Auto 0.7 % (0.2-1.2); Eosinophils Absolute Auto 0.4 K/mm3 (0-0.3); Eosinophils Percent Auto 5.2 % (0-4.4); Hematocrit 38.6 % (42.0-52.0); Hemoglobin 12.8 g/dL (14.0-18.0); Immature Granulocyte Absolute 0.01 K/mm3 (0.00-0.031); Immature Granulocyte Percent A 0.1 % (0-0.5); Lymphocytes Absolute Auto 2.51 K/mm3 (0.9-3.2); Lymphocytes Percent Auto 34.1 % (18.3-44.2); Mean Corpuscular HGB Conc 33.2 g/dl (32-36); Mean Corpuscular Hemoglobin 33.8 pg (26-34); Mean Corpuscular Volume 101.8 fl (80-100); Mean Platelet Volume 10.2 fl (7.4-10.4); Monocytes Absolute Auto 0.9 K/mm3 (0.1-0.6); Monocytes Percent Auto 12.3 % (2.6-8.5); Neutrophils Absolute Auto 3.5 K/mm3 (1.3-6.7); Neutrophils Percent Auto 47.6 % (45.5-73.1); Platelet Count Result 144 k/mm3 (150-375); Red Blood Count 3.79 M/mm3 (4.6-6.20); Red Cell Distribution Width 13.5 % (11.5-14.5); White Blood Count 7.4 K/mm3 (4.5-10.0)
[2024-09-05 05:59] LABS: Alanine Aminotransferase 21 U/L (6-50); Albumin Level 3.6 g/dL (3.5-5.1); Alkaline Phosphatase 85 U/L (38-126); Anion Gap 7 mmol/L (4-12); Aspartate Amino Transferase 34 U/L (17-59); Bilirubin,Total 1.1 mg/dL (0.2-1.3); Blood Urea Nitrogen 7 mg/dL (9-20); Calcium 8.7 mg/dL (8.4-10.2); Carbon Dioxide 25 mmol/L (22-30); Chloride 107 mmol/L (98-107); Estimated CRCL calculation 58 ml/min; Estimated Glomerular Filt Rate > 60; Glucose 100 mg/dL (65-110); Potassium 3.5 mmol/L (3.4-5.0); Sodium 139 mmol/L (137-145); Total Protein 6.3 g/dL (6.3-8.2)
[2024-09-05] MEDS: MEMANTINE 10 MG TABLET PO ×2 (09:10→18:07)
[2024-09-05] MEDS: LOVASTATIN 20 MG TABLET PO (09:10)
[2024-09-05] MEDS: TAMSULOSIN HCL 0.4 MG CAPSULE 0.8 MG PO (09:10)
[2024-09-05 10:00] VITALS: O2SAT 94
--- NOTE | 2024-09-05 13:38 | PM.IMPN ---
Progress Note: A&P Assessment and Plan (1) Behavior concern: Code(s): R46.89 - Other symptoms and signs involving appearance and behavior Status: Acute Assessment and Plan: UDS and toxicology unremarkable No concerns for infection, UA and chest XR unremarkable Head CT unremarkable MRI brain ordered to further rule out stroke as per son patient had a significant mental status change in short period of time Results showed no acute infarct, intracranial hemorrhage or mass lesion. Moderate to advanced chronic microvascular ischemic change and mild to moderate generalized atrophy. Seroquel and doxepin ordered for sleep. Possible that the Seroquel during the day is causing some of the patients increased confusion and falls. Will change Seroquel to PRN for agitation during the day and hold the nightly dose of doxepin and Seroquel. Care coordination following. Patient AOx3 on assessment. Remains calm and cooperative. He is intermittent tearful during assessment. The Seroquel and doxepin night doses remain on hold. Given the adjustment of medications, tearfulness of patient, and that he is potentially returning to assisted living with elderly will monitor him again overnight to ensure emotional lability is okay overnight. Discussed medication adjustment with neurology Dr. Greenfield via telephone and he was in agreement with the plan. (2) Frequent falls: Code(s): R29.6 - Repeated falls Status: Acute Assessment and Plan: Multiple recent falls according to facility. CPK slightly elevated, now downtrending with fluids. Will stop IV fluids as patient ripped out his IV and is drinking well. Chest XR unremarkable Head CT showed no acute intracranial findings C spine CT showed no acute osseous abnormality but multilevel degenerative disc disease with spinal canal stenosis and intervertebral foraminal narrowing MRI brain: No acute infarct, intracranial hemorrhage or mass lesion. Moderate to advanced chronic microvascular ischemic change and mild to moderate generalized atrophy. Fall precautions PT/OT evaluated patient, recommending to return to [place] for mobility assist and care Possible that the Seroquel during the day is causing some of the patients increased confusion and falls. Changed Seroquel to PRN for agitation during the day and hold the the nightly dose. (3) Elevated CPK: Code(s): R74.8 - Abnormal levels of other serum enzymes Status: Acute Assessment and Plan: Elevated at 568 >> 376 IV fluids DC, patient having adequate oral intake. (4) Dementia: Code(s): F03.90 - Unspecified dementia, unspecified severity, without behavioral disturbance, psychotic disturbance, mood disturbance, and anxiety Status: Chronic Assessment and Plan: Chronic Remains on memantine 10 mg BID. Remains on Seroquel PRN for agitation during the day. Seroquel and doxepin night doses remain on hold as possible cause of increased confusion and falls. Discussed medication adjustment with neurology Dr. Greenfield via telephone and he was in agreement with the plan. (5) Dyslipidemia: Code(s): E78.5 - Hyperlipidemia, unspecified Status: Chronic Assessment and Plan: Heart Healthy diet Continue statin (6) BPH (benign prostatic hyperplasia): Qualifiers: Lower urinary tract symptom presence: symptoms present Lower urinary tract symptom detail: nocturia Qualified Code(s): N40.1 - Benign prostatic hyperplasia with lower urinary tract symptoms; R35.1 - Nocturia Code(s): N40.0 - Benign prostatic hyperplasia without lower urinary tract symptoms Status: Chronic Assessment and Plan: Continue Flomax (7) Normocytic anemia: Code(s): D64.9 - Anemia, unspecified Status: Chronic Assessment and Plan: H/H appears at baseline. No signs of active bleeding. Monitor with daily labs. Monitor for any s/s of bleeding. Time Spent With Patient Time with patient: 25 - 35 minutes Subjective Date/time seen: 09/05/24 13:38 Interval history: 88 year old male with past medical history of dyslipidemia, BPH, dementia with hallucinations, and osteoarthritis presents to the hospital from [facility] for abnormal labs. Patient is pleasant sitting up comfortably in his chair. At time of assessment he is alert and oriented x3 but noticeably confused throughout the assessment. He is intermittently tearful during assessment. He has no complaints denying chest pain, shortness of breath, palpitations, nausea/vomiting, abdominal pain, and dizziness/lightheadedness. Review of Systems Review of Systems: All systems reviewed & are unremarkable except as noted in HPI and below Exam Narrative: AF HR 70 RR 18 SpO2 95 BP 153/78 General: male in no acute respiratory distress who is nontoxic appearing, sitting up in chair HEENT: Normocephalic. Atraumatic. Extraocular movement intact. Sclera clear and anicteric. No facial asymmetry. Chest: Lungs are clear to auscultation bilaterally. No wheezes or crackles. CV: Heart was regular rate and rhythm. Abd: Abdomen was soft. Nontender. Nondistended. Positive bowel sounds. Ext: No clubbing, cyanosis, or edema. DP pulses bilaterally. Neuro: Patient is alert and oriented x3 (person, place, year), however noticeably confused during assessment. Speech is clear. Strength is symmetrical to the upper and lower extremities with pushes/pulls. Psych: Patient is pleasant and cooperative at time of assessment. Intermittently tearful. Objective Data Vital Signs Vital Signs: Vital Signs - 24 hr 09/04/24 14:00 09/04/24 19:39 09/04/24 20:45 Temperature 98.1 F 98.1 F Pulse Rate 75 64 64 Respiratory Rate 16 17 17 Blood Pressure 140/73 155/76 H Pulse Oximetry 99 98 98 Oxygen Delivery Room Air 09/04/24 21:38 09/05/24 05:11 09/05/24 09:20 Temperature 97.8 F Pulse Rate 70 Respiratory Rate 18 Blood Pressure 153/78 H Pulse Oximetry 98 95 Oxygen Delivery Room Air Room Air 09/05/24 10:00 Temperature Pulse Rate Respiratory Rate Blood Pressure Pulse Oximetry 94 Oxygen Delivery Room Air Intake/Output Intake/Output: Intake & Output 09/02/24 09/03/24 09/04/24 09/05/24 23:59 23:59 23:59 23:59 Intake Total 1531.3 970 120 Output Total 800 Balance 731.3 970 120 Meds/Results Medications: Active Medications Generic Name Dose Route Start Last Admin Trade Name Freq PRN Reason Stop Dose Admin Acetaminophen 650 mg 09/02/24 17:57 Acetaminophen 325 Mg Tablet PO Q4H PRN Mild Pain (1-3) or Fever Doxepin HCl 10 mg 09/03/24 21:00 09/03/24 20:59 Doxepin Hcl 10 Mg Capsule PO Not Given HS CORTES Lovastatin 20 mg 09/04/24 09:00 09/05/24 09:10 Lovastatin 20 Mg Tablet PO 20 mg DAILY CORTES Administration Memantine 10 mg 09/04/24 09:00 09/05/24 09:10 Memantine 10 Mg Tablet PO 10 mg BID CORTES Administration Ondansetron HCl 4 mg 09/02/24 17:57 Ondansetron Inj 4 Mg/2 Ml Vial IV PUSH Q4H PRN Nausea Quetiapine Fumarate 25 mg 09/03/24 21:00 09/03/24 20:59 Quetiapine Fumarate 25 Mg Tablet PO Not Given HS CORTES Quetiapine Fumarate 25 mg 09/03/24 16:36 09/03/24 17:10 Quetiapine Fumarate 25 Mg Tablet PO 25 mg DAILY PRN Administration agitation Tamsulosin HCl 0.8 mg 09/04/24 09:00 09/05/24 09:10 Tamsulosin Hcl 0.4 Mg Capsule PO 0.8 mg DAILY CORTES Administration Radiology Results: ITS Impressions Head CT 09/02/24 15:00 IMPRESSION: No acute intracranial findings. Cervical Spine CT 09/02/24 15:21 IMPRESSION: No acute osseous abnormality cervical spine. Multilevel degenerative disc disease. Multilevel spinal canal stenosis and intervertebral foraminal narrowing. Chest X-Ray 09/02/24 15:39 IMPRESSION: No acute cardiopulmonary pathology Brain MRI 09/05/24 12:48 IMPRESSION: No acute infarct, intracranial hemorrhage or mass lesion. Moderate to advanced chronic microvascular ischemic change and mild to moderate generalized atrophy. Labs Labs: Laboratory Results - last 24 hr 09/05/24 04:50 WBC 7.4 RBC 3.79 L Hgb 12.8 L Hct 38.6 L MCV 101.8 H MCH 33.8 MCHC 33.2 RDW 13.5 Plt Count 144 L MPV 10.2 Immature Gran % (Auto) 0.1 Neut % (Auto) 47.6 Lymph % (Auto) 34.1 [place] % (Auto) 12.3 H Eos % (Auto) 5.2 H Baso % (Auto) 0.7 Lymph # (Auto) 2.51 [place] # (Auto) 0.9 H Eos # (Auto) 0.4 H Baso # (Auto) 0.1 Abs Immat Gran (auto) 0.01 Absolute Neuts (auto) 3.5 Absolute Nucleated RBC 0.000 Nucleated RBC % 0.0 Sodium 139 Potassium 3.5 Chloride 107 Carbon Dioxide 25 Anion Gap 7 BUN 7 L Creatinine 0.73 Estim Creat Clear Calc 58 Estimated GFR > 60 Glucose 100 Calcium 8.7 Total Bilirubin 1.1 AST 34 ALT 21 Alkaline Phosphatase 85 Total Protein 6.3 Albumin 3.6 Quality VTE Prophylaxis VTE prophylaxis: mechanical ordered
[2024-09-05 16:57] VITALS: BP 121/67; PULSE 67; RESP 18; TEMP 36.6; O2SAT 99
[2024-09-05 19:43] VITALS: BP 164/78; PULSE 71; RESP 17; TEMP 36.8; O2SAT 99
[2024-09-05 20:50] VITALS: PULSE 71; RESP 17; O2SAT 99
[2024-09-06 05:18] LABS: Basophils Percent Auto 0.6 % (0.2-1.2); Eosinophils Absolute Auto 0.4 K/mm3 (0-0.3); Eosinophils Percent Auto 5.8 % (0-4.4); Hematocrit 38.3 % (42.0-52.0); Hemoglobin 12.6 g/dL (14.0-18.0); Immature Granulocyte Absolute 0.03 K/mm3 (0.00-0.031); Immature Granulocyte Percent A 0.4 % (0-0.5); Lymphocytes Absolute Auto 2.54 K/mm3 (0.9-3.2); Lymphocytes Percent Auto 35.6 % (18.3-44.2); Mean Corpuscular HGB Conc 32.9 g/dl (32-36); Mean Corpuscular Hemoglobin 33.5 pg (26-34); Mean Corpuscular Volume 101.9 fl (80-100); Mean Platelet Volume 10.4 fl (7.4-10.4); Monocytes Absolute Auto 0.9 K/mm3 (0.1-0.6); Monocytes Percent Auto 11.9 % (2.6-8.5); Neutrophils Absolute Auto 3.3 K/mm3 (1.3-6.7); Neutrophils Percent Auto 45.7 % (45.5-73.1); Platelet Count Result 150 k/mm3 (150-375); Red Blood Count 3.76 M/mm3 (4.6-6.20); Red Cell Distribution Width 13.5 % (11.5-14.5); White Blood Count 7.1 K/mm3 (4.5-10.0)
[2024-09-06 05:24] LABS: Alanine Aminotransferase 20 U/L (6-50); Albumin Level 3.5 g/dL (3.5-5.1); Alkaline Phosphatase 81 U/L (38-126); Anion Gap 7 mmol/L (4-12); Aspartate Amino Transferase 28 U/L (17-59); Bilirubin,Total 1.1 mg/dL (0.2-1.3); Blood Urea Nitrogen 8 mg/dL (9-20); Calcium 8.8 mg/dL (8.4-10.2); Carbon Dioxide 25 mmol/L (22-30); Chloride 107 mmol/L (98-107); Estimated CRCL calculation 62 ml/min; Estimated Glomerular Filt Rate > 60; Glucose 101 mg/dL (65-110); Potassium 3.4 mmol/L (3.4-5.0); Sodium 139 mmol/L (137-145); Total Protein 6.2 g/dL (6.3-8.2)
[2024-09-06] MEDS: LOVASTATIN 20 MG TABLET PO (09:57)
[2024-09-06] MEDS: MEMANTINE 10 MG TABLET PO (09:57)
[2024-09-06] MEDS: TAMSULOSIN HCL 0.4 MG CAPSULE 0.8 MG PO (09:57)
[2024-09-06 12:18] LABS: SARS-CoV-2 RNA PCR Negative (Negative)
[2024-09-06 13:49] VITALS: BP 144/79; PULSE 75; RESP 18; TEMP 36.2; O2SAT 98
--- NOTE | 2024-09-06 14:53 | P.DS_ITS ---
DS: Admitting Diagnosis Discharge Date 09/06/2024 Admitting Diagnosis Behavior concern freqeunt falls elevated cpk dementia dyslipidemia bph normocytic anemia DS: Discharge Diagnosis Discharge Diagnosis (1) Behavior concern: Code(s): R46.89 - Other symptoms and signs involving appearance and behavior Status: Acute (2) Frequent falls: Code(s): R29.6 - Repeated falls Status: Acute (3) Elevated CPK: Code(s): R74.8 - Abnormal levels of other serum enzymes Status: Acute (4) Dementia: Code(s): F03.90 - Unspecified dementia, unspecified severity, without behavioral disturbance, psychotic disturbance, mood disturbance, and anxiety Status: Chronic (5) Dyslipidemia: Code(s): E78.5 - Hyperlipidemia, unspecified Status: Chronic (6) BPH (benign prostatic hyperplasia): Qualifiers: Lower urinary tract symptom presence: symptoms present Lower urinary tract symptom detail: nocturia Qualified Code(s): N40.1 - Benign prostatic hyperplasia with lower urinary tract symptoms; R35.1 - Nocturia Code(s): N40.0 - Benign prostatic hyperplasia without lower urinary tract symptoms Status: Chronic (7) Normocytic anemia: Code(s): D64.9 - Anemia, unspecified Status: Chronic DS: Summary Hospital Course Reason for hospitalization: Behavior concern freqeunt falls elevated cpk dementia dyslipidemia bph normocytic anemia Hospital Course: 88 year old male with past medical history of dyslipidemia, BPH, dementia with hallucinations, and osteoarthritis presents to the hospital from [facility] for falls and combativeness. UDS and toxicology unremarkable. No concerns for infection, UA and chest XR unremarkable. Head CT unremarkable. MRI brain ordered to further rule out stroke. Results showed no acute infarct, intracranial hemorrhage or mass lesion, but a moderate to advanced chronic microvascular ischemic change and mild to moderate generalized atrophy. Patient having multiple recent falls according to facility. CPK slightly elevated, downtrended with fluids. C spine CT showed no acute osseous abnormality but multilevel degenerative disc disease with spinal canal stenosis and intervertebral foraminal narrowing. PT/OT evaluated patient, recommending to return to [place] for mobility assist and care. Seroquel and doxepin night doses remain on hold as possible cause of increased confusion and falls. Remains on memantine 10 mg BID. Remains on Seroquel PRN for agitation during the day. Discussed medication adjustment with neurology Dr. Greenfield via telephone and he was in agreement with the plan and follow up with neurology in the outpatient setting. Throughout admission patient was AOx3 with noted confusion on further assessment. He was calm and cooperative throughout admission as well. Patient had no complaints denying chest pain, shortness of breath, palpitations, nausea/vomiting and abdominal. Patient discharged to SNF in a stable condition. He is to follow up with PCP in 1 week and neurology as scheduled. Status at Discharge Functional status at discharge: uses cane/walker Time Spent with Patient Time attestation: Total time spent providing and/or coordinating discharge services: Time spent: Greater than 30 minutes Exam Narrative: AF HR 75 RR 18 SPO2 98 BP 144/79 General: male in no acute respiratory distress who is nontoxic appearing, sitting up in bed HEENT: Normocephalic. Atraumatic. Extraocular movement intact. Sclera clear and anicteric. No facial asymmetry. Chest: Lungs are clear to auscultation bilaterally. No wheezes or crackles. CV: Heart was regular rate and rhythm. Abd: Abdomen was soft. Nontender. Nondistended. Positive bowel sounds. Ext: No clubbing, cyanosis, or edema. DP pulses bilaterally. Neuro: Patient is alert and oriented x3 (person, place, year), however noticeabl y confused during assessment. Speech is clear. Strength is symmetrical to the upper and lower extremities with pushes/pulls. Psych: Patient is pleasant and cooperative at time of assessment. DS: Data Data Completed and Pending Completed studies during hospitalization: brain mri chest xr c spine ct head ct Labs on day of discharge: Labs from last 24 hours 09/06/24 09/06/24 11:35 04:40 WBC 7.1 RBC 3.76 L Hgb 12.6 L Hct 38.3 L MCV 101.9 H MCH 33.5 MCHC 32.9 RDW 13.5 Plt Count 150 MPV 10.4 Immature Gran % (Auto) 0.4 Neut % (Auto) 45.7 Lymph % (Auto) 35.6 [place] % (Auto) 11.9 H Eos % (Auto) 5.8 H Baso % (Auto) 0.6 Lymph # (Auto) 2.54 [place] # (Auto) 0.9 H Eos # (Auto) 0.4 H Baso # (Auto) 0.0 Abs Immat Gran (auto) 0.03 Absolute Neuts (auto) 3.3 Absolute Nucleated RBC 0.000 Nucleated RBC % 0.0 Sodium 139 Potassium 3.4 Chloride 107 Carbon Dioxide 25 Anion Gap 7 BUN 8 L Creatinine 0.68 L Estim Creat Clear Calc 62 Estimated GFR > 60 Glucose 101 Calcium 8.8 Total Bilirubin 1.1 AST 28 ALT 20 Alkaline Phosphatase 81 Total Protein 6.2 L Albumin 3.5 SARS-CoV-2 RNA (RT-PCR) Negative Discharge Plan Discharge Attending physician on discharge: Kolton Rowell Consulting providers: Meagan Gonzalez Discharging Clinician: Meagan Gonzalez Anticipated Discharge Date/Time: 09/06/24 14:48 Patient Disposition: SNF Activity: as tolerated Diet: as tolerated and heart healthy Discharge Instructions: Discharge disposition: Patient admitted for increased confusion likely related to medication Imaging unremarkable Continue Seroquel as needed for agitation Scheduled Seroquel and doxepin placed on hold, neurology aware of medication change. Follow up with Dr. Adamson or PCP to rediscuss dementia medications. Patient has had multiple recent falls according to facility Imaging unremarkable for acute injury Continue to work with physical therapy to rebuild strength Monitor blood pressures Take caution while standing, rising, or moving Change positions slowly taking a break between each position change If you standing feel dizzy sit back down and take a break Encouraged to continue with yearly vaccinations Return to the emergency department if he developed sudden shortness of breath, chest pain, nausea, vomiting, upset stomach or intractable diarrhea Return to the emergency department if you develop fever greater than 101.5 Follow-up with the primary care physician within 1-2 weeks Thank you for [facility] for your healthcare needs Patient Instructions: Quetiapine (By mouth), Dementia (ED) Patient Language: [place]og[place]ese Stand Alone Forms: General Discharge Information Follow-up/Referrals: Vaibhav Haro MD [Primary Care Provider] - 1 Week Myron Adamson MD [Physician] - Call for Appointment Discharge Medications: New quetiapine [Seroquel] 25 mg Tablet 25 mg PO DAILY PRN (Reason: agitation) Qty: 15 0RF Continued lutein 10 mg tablet 10 mg PO DAILY Rx Instructions: give with meal/snack memantine 10 mg tablet 10 mg PO BID Qty: 180 3RF tamsulosin 0.4 mg capsule 0.8 mg PO DAILY Qty: 180 1RF lovastatin 20 mg tablet 20 mg PO DAILY Qty: 90 1RF mecobalamin (vitamin B12) 2,500 mcg tablet,chewable 2,500 mcg PO DAILY Held quetiapine 25 mg tablet 25 mg PO BID Qty: 60 5RF Hold Instructions: Resume on 10/08/24. Hold until follow up with PCP or neurology. Rx Instructions: start with 1 tablet at bedtime and after 1 week increase to 1 twice a day or 2 tablets at doxepin 10 mg capsule 10 mg PO QHS Qty: 90 0RF Hold Instructions: Resume on 10/08/24. Hold until follow up with PCP or neurology. Date of admission: 09/03/24 11:11 Primary Care Provider: Vaibhav Haro Admitting Provider: Luis Miguel Colin Attending physician on admission: Luis Miguel Colin Condition: Stable Hospitalist MIPS Heart Failure (Exclusion) Patient has history of Heart Transplant or Left Ventricular Assistive Device?: No IF YES, STOP HERE Heart Failure (Qualifier) Patient has current or prior documentation of LVEF less than or equal to 40%, or mod/servere depressed LVSF?: No IF NO, STOP HERE
== END 2024-09-06 17:10 | DRG 948 ==
LOC: ANHED 13:34 → ANH3MEDSUR 18:44 → ANH2MED 19:48
PROVIDERS: Emergency Medicine; Nurse Practitioner Adult Health; Admitting Provider Internal Medicine; Emergency Provider Student in an Organized Health Care Education/Training Program; PCP Family Medicine; Visit Provider Student in an Organized Health Care Education/Training Program
DX: R41.0 Disorientation, unspecified (principal); R46.89 Other symptoms and signs involving appearance and behavior; R27.0 Ataxia, unspecified; R29.6 Repeated falls; E78.5 Hyperlipidemia, unspecified; N40.1 Benign prostatic hyperplasia with lower urinary tract symptoms; R35.1 Nocturia; R74.8 Abnormal levels of other serum enzymes; M19.90 Unspecified osteoarthritis, unspecified site; T43.595A Adverse effect of other antipsychotics and neuroleptics, initial encounter; Z20.822 Contact with and (suspected) exposure to COVID-19; Z11.52 Encounter for screening for COVID-19; Z87.891 Personal history of nicotine dependence; Z79.82 Long term (current) use of aspirin
CPT/HCPCS: 36415; 70450; 70551; 71045; 72125; 80053; 80143; 80179; 80307; 81001; 82077; 82140; 82550; 83735; 84443; 85025; 85610; 85730; 87635; 93005; 96372; 97161; 97166; 97530; 97535; 99285; A9270; G0378; J2060; J7030

== ENCOUNTER 2024-10-30 07:30 | Emergency (ER) | payer MEDICARE, SELFPAY ==
--- NOTE | ~2024-10-30 | XR_ITS ---
XR lumbar spine 2-3V 10/30/2024 08:23 Indication: Back pain after fall Procedure: 3 views lumbar spine Comparison: No prior studies for comparison. Findings: There is mild superior endplate compression deformity of L2-L4, likely chronic. There is disc narrowing at all lumbar levels. Prominent ventral bridging osteophytes at L2-3 through L4-5. There is severe multilevel facet hypertrophy. Osteopenia. There is an old healed right 12th rib fracture. No acute fracture, subluxation or dislocation. Impression: 1: No acute fracture. 2: Severe lumbar spondylosis. 3: Mild chronic superior endplate compression deformities of L2-L4. Reviewed, dictated and finalized at location O. Impression: 1: No acute fracture. 2: Severe lumbar spondylosis. 3: Mild chronic superior endplate compression deformities of L2-L4.
--- NOTE | ~2024-10-30 | CT_ITS ---
EXAMINATION: CT brain wo con DATE: 10/30/2024 08:07 INDICATION: Head injury TECHNIQUE: Computed tomography (CT) of the head was performed without intravenous contrast. The dose-length product was 394.35 mGy-cm. Automated exposure control and iterative reconstruction technique were employed. COMPARISON: CT dated 09/02/2024 FINDINGS: Brain parenchymal volume normal for age. No ventriculomegaly or midline shift. Basilar cisterns are patent. No acute infarction, hemorrhage, mass or mass effect. Paranasal sinuses and mastoids are pneumatized. There is intracranial atherosclerosis. IMPRESSION: 1. No acute intracranial abnormality. Reviewed, dictated and finalized at location O.
[2024-10-30 07:36] VITALS: BP 155/74; PULSE 60; RESP 17; TEMP 36.4; O2SAT 100
[2024-10-30] MEDS: ACETAMINOPHEN 325 MG TABLET 650 MG PO (07:56)
--- NOTE | 2024-10-30 07:59 | PC.NURSE ---
Pt to imaging via stretcher at this time
--- NOTE | 2024-10-30 08:22 | ED.FALL ---
HPI - Fall General Chief Complaint: Fall Stated Complaint: fall Time Seen by Provider: 10/30/24 07:36 History of Present Illness HPI Narrative: Patient is an 89-year-old male who presents ER after a fall. Per resident facility they reported was unwitnessed. He reports some eye was helping him out of bed and the walker flipped out from in front of him when he fell and struck his head. Denies LOC. He is on medication for dementia. He also reports some low back pain. No lower extremity numbness or weakness. No additional concerns. Related Data Home Medications ?Medication ?Instructions ?Recorded ?Confirmed ?Last Taken ?Type lutein 10 mg tablet 10 mg PO DAILY 10/26/20 09/02/24 Unknown History mecobalamin (vitamin B12) 2,500 2,500 mcg PO DAILY 10/28/23 09/02/24 Unknown History mcg chewable tablet Allergies Allergy/AdvReac Type Severity Reaction Status Date / Time No Known Allergies Allergy Verified 10/30/24 07:35 Review of Systems Review of Systems: All systems reviewed & are unremarkable except as noted in HPI and below Constitutional: Constitutional: Reports no additional constitutional complaints Cardiovascular: Cardiovascular: Reports no additional cardiovascular complaints Respiratory: Respiratory: Reports no additional respiratory complaints Musculoskeletal: Musculoskeletal: Reports no additional musculoskeletal complaints Neurologic: Reports system reviewed and no additional complaints, except as documented PMF Past Medical History Medical History Falls frequently Ataxia Obesity Osteoarthritis BPH (benign prostatic hyperplasia) Dyslipidemia Social History Social History Social History: POLST signed 08/09/24 lists Do Not Attempt Resuscitation/DNR with comfort-focused treatment Smoking status: Former smoker Tobacco type: cigars Second hand tobacco smoke exposure: No Alcohol intake: unknown Alcohol use details: Wine Substance use: unknown Substance use type: does not use Do You Feel Safe in your Home?: Yes Lack of Transportation: No Lack of Food: Never True Current Housing: Decline to Answer Concerned About Future Housing: Decline to Answer Difficulty Paying Gas/Electric Bills: Decline to Answer Difficulty Paying for Meds: Decline to Answer Currently Unemployed: Decline to Answer Education: Decline to Answer Difficulty w/ Childcare or Family Care: Decline to Answer Living arrangements: [facility] Additional living arrangements comments: [facility] care concerns: No Exam Narrative: GENERAL: Well-appearing, well-nourished, and in no acute distress. HEAD: Normocephalic, abrasion to the top of the head. ENT: Mucous membranes moist. CHEST: Clear to auscultation. No respiratory distress. HEART: Regular rate and rhythm. Normal peripheral pulses. ABDOMEN: Soft, nontender, nondistended. Back: No midline tenderness the T spine. Mild tenderness about L3 without step-offs/bruising/abrasion. No paraspinal tenderness. EXTREMITIES: Normal range of motion. No edema. SKIN: Warm, dry, no rash. NEURO: Alert and oriented x3. PSYCH: Normal mood and affect. Course Course Emergency Course: Tylenol for pain. No fracture. Able to get up and walk with assistance using walker which is his baseline. Appropriate for discharge back to facility. Son will drive him. Vital Signs Vital signs: Vital Signs Temperature 97.6 F 10/30/24 07:36 Pulse Rate 60 10/30/24 07:36 Respiratory Rate 17 10/30/24 07:36 Blood Pressure 155/74 H 10/30/24 07:36 Pulse Oximetry 100 10/30/24 07:36 Oxygen Delivery Room Air 10/30/24 07:36 Temperature 97.6 F 10/30/24 07:36 Pulse Rate 53 L 10/30/24 08:27 Respiratory Rate 12 10/30/24 08:27 Blood Pressure 172/72 H 10/30/24 08:27 Pulse Oximetry 100 10/30/24 08:27 Oxygen Delivery Room Air 10/30/24 07:36 MDM - Fall Imaging Data Radiologist's impression: ITS Impressions Head CT 10/30/24 08:21 IMPRESSION: 1. No acute intracranial abnormality. Lumbar Spine X-Ray 10/30/24 08:28 Impression: 1: No acute fracture. 2: Severe lumbar spondylosis. 3: Mild chronic superior endplate compression deformities of L2-L4. Discharge Plan Discharge Clinical Impression: Low back pain Patient Disposition: Home Condition: Stable Instructions: Acute Low Back Pain (ED) Additional Instructions: Please return to the emergency department if you develop severe pain that is not controlled by pain medications or if you are unable to walk because of pain or weakness. Return to the emergency department immediately if you develop fevers, loss of bowel or bladder control (dribbling of urine or having accidents you wouldn't normally have), inability to urinate, numbness of your genital or anal area, or weakness/numbness of your legs or arms as these could all be signs of a serious medical emergency. Patient Language: Turkish Prescriptions: New naproxen sodium 275 mg tablet 275 mg PO BID Qty: 14 0RF No Action lutein 10 mg tablet 10 mg PO DAILY Rx Instructions: give with meal/snack memantine 10 mg tablet 10 mg PO BID Qty: 180 3RF quetiapine 25 mg tablet 25 mg PO BID Qty: 60 5RF Rx Instructions: start with 1 tablet at bedtime and after 1 week increase to 1 twice a day or 2 tablets at doxepin 10 mg capsule 10 mg PO QHS Qty: 90 0RF quetiapine [Seroquel] 25 mg Tablet 25 mg PO DAILY PRN (Reason: agitation) Qty: 15 0RF tamsulosin 0.4 mg capsule 0.8 mg PO DAILY Qty: 180 1RF lovastatin 20 mg tablet 20 mg PO DAILY Qty: 90 1RF mecobalamin (vitamin B12) 2,500 mcg tablet,chewable 2,500 mcg PO DAILY Centrum Silver Men [id number] mcg tablet 1 tablet PO DAILY Qty: 90 1RF melatonin 10 mg tablet 10 mg PO QHS PRN (Reason: sleep) Qty: 90 0RF Follow-up/Referrals: Vaibhav Haro MD [Primary Care Provider, Family Practice] - 1 Week
[2024-10-30 08:27] VITALS: BP 172/72; PULSE 53; RESP 12; O2SAT 100
--- NOTE | 2024-10-30 08:36 | PC.NURSE ---
Pt rated pain 9 of 10 after tylenol admin. EdP aware.
[2024-10-30 09:10] VITALS: BP 166/82; PULSE 52; RESP 14; TEMP 36.3; O2SAT 100
== END 2024-10-30 09:25 ==
PROVIDERS: Emergency Provider Emergency Medicine; PCP Family Medicine
DX: S39.92XA Unspecified injury of lower back, initial encounter (principal); S00.01XA Abrasion of scalp, initial encounter; F03.90 Unspecified dementia, unspecified severity, without behavioral disturbance, psychotic disturbance, mood disturbance, and anxiety; E78.5 Hyperlipidemia, unspecified; N40.0 Benign prostatic hyperplasia without lower urinary tract symptoms; M47.816 Spondylosis without myelopathy or radiculopathy, lumbar region; M19.90 Unspecified osteoarthritis, unspecified site; Z79.899 Other long term (current) drug therapy; W18.39XA Other fall on same level, initial encounter
CPT/HCPCS: 70450; 72100; 99284; A9270

== ENCOUNTER 2024-12-04 04:56 | Emergency (ER) | payer MEDICARE, SELFPAY ==
--- NOTE | ~2024-12-04 | CT_ITS ---
CT CERVICAL SPINE WITHOUT CONTRAST CLINICAL HISTORY: fall, trauma Technique: Axial images thoracic inlet to skull base Sagittal and coronal reformats. No contrast CT images acquired with automatic exposure control for dose reduction DLP: 391 mGy-cm Comparison: 09/02/2024 Findings: No acute fracture or listhesis. Straightening of normal cervical lordosis. Moderate degenerative changes. Disc spaces maintained. Prevertebral soft tissues within normal limits. Visualized lung apices: Clear. Visualized thyroid: Unremarkable. No enlarged cervical nodes. IMPRESSION: 1. No acute findings. Reviewed, dictated and finalized at location R. IMPRESSION: 1. No acute findings.
--- NOTE | ~2024-12-04 | CT_ITS ---
EXAMINATION: CT thoracic spine wo con DATE: 12/04/2024 05:46 INDICATION: Trauma. TECHNIQUE: Computed tomography (CT) of the thoracic spine was performed without intravenous contrast. Automated exposure control and iterative reconstruction technique were employed. The dose-length product was 1121.79 mGy-cm. COMPARISON: None FINDINGS: There is a 3.5 cm cyst in right kidney. There is 5 degrees dextrocurvature of thoracic spine. There is a compression fracture of the superior endplate of T10 with 1/5 loss of height. There is a burst fracture of the inferior plate of T9 with less than 1/5 loss of height. There are bridging endplate osteophytes from T2 to T9 and from T10 to L1, consistent with diffuse idiopathic skeletal hyperostosis (DISH). There is multilevel facet joint osteoarthritis, severe at multiple levels. There is mild neural frontal stenosis at multiple levels on either side. On the left, there is moderate neural foraminal stenosis at T9-T10. There is no central canal stenosis. IMPRESSION: 1. Burst fracture of T9 and compression fracture of T10. 2. DISH. Reviewed, dictated and finalized at location E.
--- NOTE | ~2024-12-04 | CT_ITS ---
CT HEAD NON-CONTRAST CT C-SPINE Clinical History: fall, trauma Comparison: CT brain 10/30/2024 CT C-spine 09/02/2024 Technique: Unenhanced axial images skull base to vertex. Coronal, sagittal reformats. Axial images thoracic inlet to skull base. Sagittal and coronal reformats. CT images acquired with automatic exposure control for dose reduction DLP: 681 mGy-cm Findings: Head: Global atrophy. White matter chronic microvascular ischemic changes. Sulci, ventricles: Unremarkable. No intracerebral hemorrhage. No evidence acute territorial infarct. No mass effect, midline shift, intra-/extra-axial fluid collection. Bony calvarium intact. Visualized paranasal sinuses: Clear. Mastoid air cells: Clear. Left parietal scalp contusion. C-spine: No acute fracture or listhesis. Straightening of normal cervical lordosis consistent with positional and/or spasm.. Moderate degenerative changes. Disc spaces maintained. Prevertebral soft tissues within normal limits. Visualized lung apices: Clear. Visualized thyroid: Right lobe slightly larger. No enlarged cervical nodes. IMPRESSION: HEAD: 1. No acute intracranial findings. C-SPINE: 1. No acute fracture. Reviewed, dictated and finalized at location R.
[2024-12-04 04:57] VITALS: BP 174/80; PULSE 56; RESP 18; TEMP 36.7; O2SAT 98
--- NOTE | 2024-12-04 05:03 | ED.BACK ---
HPI - Back Pain/Injury General Chief Complaint: Back Pain/Injury Stated Complaint: fall/back pain History of Present Illness HPI Narrative: Patient is an 89-year-old male who presents to the emergency department this evening status post a ground level mechanical fall. Patient states that he was walking outside when all of a sudden he heard a loud noise and before he knew it he was on the ground facing the [place]. Patient states that he landed on his midback. Unsure if he hit his head or not but admits to mild headache to the top of the head. Denies any neck pain, denies any lower back pain and denies any additional injuries or concerns. Patient is moving all 4 extremities spontaneously. No additional symptoms or concerns at this time. Related Data Home Medications ?Medication ?Instructions ?Recorded ?Confirmed ?Last Taken ?Type lutein 10 mg tablet 10 mg PO DAILY 10/26/20 11/17/24 Unknown History mecobalamin (vitamin B12) 2,500 2,500 mcg PO DAILY 10/28/23 11/17/24 Unknown History mcg chewable tablet tamsulosin 0.4 mg capsule 0.4 mg PO DAILY 11/02/24 11/17/24 Unknown History Allergies Allergy/AdvReac Type Severity Reaction Status Date / Time No Known Allergies Allergy Verified 12/04/24 05:03 Review of Systems Review of Systems: All systems are reviewed and are negative unless stated otherwise in the HPI. [facility] Past Medical History Medical History Dementia of Alzheimer's type with behavioral disturbance Falls frequently Ataxia Obesity Osteoarthritis BPH (benign prostatic hyperplasia) Dyslipidemia Social History Social History Social History: POLST signed 08/09/24 lists Do Not Attempt Resuscitation/DNR with comfort-focused treatment Smoking status: Former smoker Tobacco type: cigars Second hand tobacco smoke exposure: No Alcohol intake: unknown Alcohol use details: Wine Substance use: unknown Substance use type: does not use Do You Feel Safe in your Home?: Yes Lack of Transportation: No Lack of Food: Never True Current Housing: Decline to Answer Concerned About Future Housing: Decline to Answer Difficulty Paying Gas/Electric Bills: Decline to Answer Difficulty Paying for Meds: Decline to Answer Currently Unemployed: Decline to Answer Education: Decline to Answer Difficulty w/ Childcare or Family Care: Decline to Answer [facility] Additional living arrangements comments: [facility] care concerns: No Exam Narrative: General: Alert, awake, afebrile, in no acute distress. HEENT: PERRL, no rhinorrhea, no post nasal drip, oropharynx clear. Neck: Trachea midline, no JVD, no lymphadenopathy. Cardiovascular: Regular rate and rhythm, no murmurs, rubs or gallops, no peripheral edema. Respiratory: Clear to auscultation bilaterally, no tachypnea, no wheezing, no rhonchi, no rubs, no respiratory distress. Abdomen: Soft, nontender, nondistended, no rebound, no guarding, no peritoneal signs. Musculoskeletal: No joint swelling or deformity, normal muscle tone. Back: No midline tenderness to palpation over the cervical or lumbar spine, patient does have tenderness to palpation over the thorcic spine and the paraspinal thoracic region, no step-offs or deformities. Skin: No rashes or petechia, no signs of infection. Psychiatric: Alert and oriented, normal behavior and judgment for situation. Neurological: Alert and oriented to person, place, and time. Follows all commands. No focal deficits, speech is clear and fluent. Course Vital Signs Vital signs: Vital Signs Temperature 98.1 F 12/04/24 04:57 Pulse Rate 56 L 12/04/24 04:57 Respiratory Rate 18 12/04/24 04:57 Blood Pressure 174/80 H 12/04/24 04:57 Pulse Oximetry 98 12/04/24 04:57 Oxygen Delivery Room Air 12/04/24 04:57 Temperature 98.1 F 12/04/24 04:57 Pulse Rate 56 L 12/04/24 04:57 Respiratory Rate 18 12/04/24 04:57 Blood Pressure 174/80 H 12/04/24 04:57 Pulse Oximetry 98 12/04/24 04:57 Oxygen Delivery Room Air 12/04/24 04:57 MDM - Back Pain/Injury MDM Narrative Medical decision making narrative: The patient was evaluated by myself in the emergency department. History is obtained from patient who is an independent historian and physical exam was performed. External medical records were reviewed at this time. Patient was administered oral [place] 5-325 mg at this time. Imaging studies obtained included CT brain, C-spine, T-spine without IV contrast which was independently interpreted by me revealing slight cortical irregularity in the anterior inferior margin of T9 likely secondary to fracture, no vertebral height loss noted, otherwise no acute process, which is pending final radiology interpretation. Differential diagnosis considerations include fractures, dislocation, musculoskeletal strain. Comorbidities impacting this visit include none. I have evaluated and discussed social determinants of health with the patient that could potentially impact subsequent diagnosis and treatment plans. On repeat assessment of the patient, reevaluation revealed that the patient is doing well and is in no acute distress. Patient symptoms have improved since he arrived to our emergency department. Repeat vital signs were all reviewed and noted to be stable. Differential diagnosis and treatment plan were discussed with the patient at bedside. Patient agrees with discussion and after shared medical decision making agrees with discharge. All questions were answered to the patient's satisfaction. Patient will follow up with Neurosurgery in 3-5 days. Patient was provided with strict return precautions and instructed to return to the emergency department if any new or worsening symptoms develop. The patient was discharged in stable condition. Discharge Plan Discharge Clinical Impression: Closed T9 spinal fracture Patient Disposition: Home Condition: Improved Instructions: Antibiotic Form, Thoracolumbar Fracture (ED) Additional Instructions: Please follow-up with the neurosurgeon your provided with today within the next 3-5 days. Use the prescribed pain medications as needed for pain. Return to ED if any new or worsening symptoms develop. Patient Language: Khmer Prescriptions: New hydrocodone-acetaminophen 5-325 mg tablet 1 tablet PO Q8H PRN (Reason: pain) Qty: 10 0RF No Action lutein 10 mg tablet 10 mg PO DAILY Rx Instructions: give with meal/snack tamsulosin 0.4 mg capsule 0.4 mg PO DAILY doxepin 10 mg capsule 10 mg PO QHS Qty: 90 0RF carbidopa-levodopa 25-100 mg tablet extended release 1 tablet PO BID Qty: 60 4RF Rx Instructions: start with 1 tablet daily for 1 week and then 1 tablet twice a day at 8:00 a.m. and 2:00 p.m. memantine 10 mg tablet 10 mg PO BID Qty: 180 3RF quetiapine [Seroquel] 25 mg Tablet 25 mg PO DAILY PRN (Reason: agitation) Qty: 15 0RF lovastatin 20 mg tablet 20 mg PO DAILY Qty: 90 1RF mecobalamin (vitamin B12) 2,500 mcg tablet,chewable 2,500 mcg PO DAILY polyethylene glycol 3350 [Miralax] 17 gram/dose powder 17 g PO DAILY PRN (Reason: constipation) Qty: 510 0RF Follow-up/Referrals: Mackenzie Valladares MD [Physician, Neurosurgery] - 3 Days UNKNOWN,DOCTOR [Primary Care Provider] Time of Disposition: 06:35
--- NOTE | 2024-12-04 05:15 | PC.NURSE ---
This RN called pt per pt request and left a voicemail. This RN also called pt son delilah and gave update on pt.
[2024-12-04] MEDS: HYDROcodone/acetaminophen (*CRX) 5-325 MG TABLET 1 TAB PO (06:37)
--- NOTE | 2024-12-04 06:43 | PC.NURSE ---
This RN called and spoke to son and gave update on pt status and POC of going back to facility.
[2024-12-04 06:56] VITALS: BP 158/69; PULSE 58; RESP 16; O2SAT 95
== END 2024-12-04 09:22 ==
PROVIDERS: Emergency Provider Emergency Medicine
DX: S22.079A Unspecified fracture of T9-T10 vertebra, initial encounter for closed fracture (principal); W18.39XA Other fall on same level, initial encounter; R51.9 Headache, unspecified
CPT/HCPCS: 70450; 72125; 72128; 99284; A9270

== ENCOUNTER 2025-02-01 18:00 | Emergency (ER) | payer MEDICARE, SELFPAY ==
[2025-02-01] VITALS (9 sets, daily range): BP systolic 147–208; BP diastolic 72–99; PULSE 77–98; RESP 17–41; O2SAT 93–97
--- NOTE | ~2025-02-01 | CT_ITS ---
EXAMINATION: CT cervical spine wo con DATE: 02/01/2025 18:09 INDICATION: Trauma due to fall yesterday. TECHNIQUE: Computed tomography (CT) of the cervical spine was performed without intravenous contrast. Automated exposure control and iterative reconstruction technique were employed. The dose-length product was 492.51 mGy-cm. COMPARISON: C-spine dated 12/04/2024. FINDINGS: No acute fractures are cervical vertebrae. Severe degenerative disc disease at multiple mid and lower cervical region. No compromise of bony spinal canal. Reversal of cervical curvature due to muscle spasm. IMPRESSION: 1. No acute fractures of cervical vertebrae. 2. Multilevel degenerative disc disease. Paravertebral muscle spasm. Reviewed, dictated and finalized at location T. MEASURER
--- NOTE | ~2025-02-01 | CT_ITS ---
EXAMINATION: CT brain wo con DATE: 02/01/2025 18:09 INDICATION: Trauma yesterday. Altered mental status. Nonresponsive. TECHNIQUE: Computed tomography (CT) of the head was performed without intravenous contrast. The mA was adjusted according to patient size. Iterative reconstruction technique was employed. The dose-length product was 605.33 mGy-cm. COMPARISON: CT head dated 12/04/2024. FINDINGS: There is a large, acute subdural hematoma on the left side. The hematoma extends from the anterior to posterior midline. Maximum width of the hematoma measures 18 mm. Extension of the hematoma over the tentorium on the left side. Significant midline shift to the right, measuring 20 mm of midline shift to the right. Effacement of sulci on the right side. No acute cranial fracture is noted. IMPRESSION: 1. . Critical finding of a large acute subdural hematoma on the left side measuring up to 18 mm in width with extension to the tentorium on the left side. 2. Severe midline shift to the right of 20 mm and effacement of sulci on the left side. 3. Critical findings conveyed to the attending physician by telephone call at 6:24 PM. Reviewed, dictated and finalized at location T. L ROD BUSTER IMPRESSION: 1. . Critical finding of a large acute subdural hematoma on the left side measu ring up to 18 mm in width with extension to the tentorium on the left side. 2. Severe midline shift to the right of 20 mm and effacement of sulci on the le ft side. 3. Critical findings conveyed to the attending physician by telephone call at 6 :24 PM.
--- NOTE | ~2025-02-01 | XR_ITS ---
EXAMINATION: XR chest 1V portable DATE: 02/01/2025 18:29 INDICATION: Weakness. TECHNIQUE: A single frontal view of the chest was obtained. COMPARISON: Chest x-ray dated 09/02/2024. FINDINGS: Cardiomegaly and atherosclerotic aorta. Lungs are clear of acute process. IMPRESSION: 1. No acute findings. Cardiomegaly and atherosclerotic aorta. Reviewed, dictated and finalized at location T. R LEAGUE BASEBALL PLAYER
--- NOTE | 2025-02-01 18:15 | ED.GENADULT ---
HPI - General Adult General Chief complaint: Altered Mental Status Stated complaint: unresponsive History of Present Illness HPI narrative: Patient 89-year-old gentleman who presents emergency department with chief complaint of altered mental status the patient is resident of a local nursing facility and had a fall last night apparently today the patient vomited and was found unresponsive at the facility and was transported to the emergency department Related Data Home Medications ?Medication ?Instructions ?Recorded ?Confirmed ?Last Taken ?Type lutein 10 mg tablet 10 mg PO DAILY 10/26/20 12/25/24 Unknown History mecobalamin (vitamin B12) 2,500 2,500 mcg PO DAILY 10/28/23 12/25/24 Unknown History mcg chewable tablet tamsulosin 0.4 mg capsule 0.4 mg PO DAILY 11/02/24 12/25/24 Unknown History Held on 12/08/24. Instructions: Home Medication placed on hold at Doctor's office Allergies Allergy/AdvReac Type Severity Reaction Status Date / Time No Known Allergies Allergy Verified 12/15/24 10:18 Review of Systems Review of Systems: ROS unobtainable: Yes unobtainable due to medical condition and unobtainable due to mental status PMFSH Past Medical History Medical History Dementia of Alzheimer's type with behavioral disturbance Falls frequently Ataxia Obesity Osteoarthritis BPH (benign prostatic hyperplasia) Dyslipidemia Social History Social History Social History: POLST signed 08/09/24 lists Do Not Attempt Resuscitation/DNR with comfort-focused treatment Smoking status: Former smoker Tobacco type: cigars Second hand tobacco smoke exposure: No Alcohol intake: unknown Alcohol use details: Wine Substance use: unknown Substance use type: does not use Do You Feel Safe in your Home?: Yes Lack of Transportation: No Lack of Food: Never True Current Housing: Decline to Answer Concerned About Future Housing: Decline to Answer Difficulty Paying Gas/Electric Bills: Decline to Answer Difficulty Paying for Meds: Decline to Answer Currently Unemployed: Decline to Answer Education: Decline to Answer Difficulty w/ Childcare or Family Care: Decline to Answer Living arrangements: detention Additional living arrangements comments: [facility] care concerns: No Exam Narrative: GENERAL: Ill-appearing unresponsive HEAD: Normocephalic, atraumatic. EYES: 2 mm unreactive. ENT: Nares clear, no rhinorrhea or epistaxis. Mucous membranes moist. NECK: Supple. CHEST: Clear to auscultation. No respiratory distress. HEART: Regular rate and rhythm. No murmur heard. Normal peripheral pulses. ABDOMEN: Soft, nontender, nondistended, normal active bowel sounds. EXTREMITIES: Signs of external trauma. No edema. SKIN: Warm, dry, no rash. NEURO: Unresponsive to pain PSYCH: Unresponsive Course Vital Signs Vital signs: Vital Signs Pulse Rate 92 02/01/25 17:51 Respiratory Rate 17 02/01/25 17:51 Blood Pressure 203/73 H 02/01/25 17:51 Pulse Oximetry 97 02/01/25 17:51 Oxygen Delivery Room Air 02/01/25 17:51 Pulse Rate 92 02/01/25 17:51 Respiratory Rate 17 02/01/25 17:51 Blood Pressure 203/73 H 02/01/25 17:51 Pulse Oximetry 97 02/01/25 17:51 Oxygen Delivery Room Air 02/01/25 18:11 Medical Decision Making [facility] Narrative Medical decision making narrative: Patient presents with a active DNR with comfort measures order CT head showed a significant hemorrhage It was discussed with the patient's family and they confirmed that the patient did not want any significant intervention and would like hospice involved the [facility] hospice was consult at and plan will be for inpatient hospice Vital Signs Vital Signs: Vital Signs Pulse Rate 92 02/01/25 17:51 Respiratory Rate 17 02/01/25 17:51 Blood Pressure 203/73 H 02/01/25 17:51 Pulse Oximetry 97 02/01/25 17:51 Oxygen Delivery Room Air 02/01/25 17:51 Pulse Rate 92 02/01/25 17:51 Respiratory Rate 17 02/01/25 17:51 Blood Pressure 203/73 H 02/01/25 17:51 Pulse Oximetry 97 02/01/25 17:51 Oxygen Delivery Room Air 02/01/25 18:11 Lab Data 02/01/25 18:21 02/01/25 18:21 Labs: Lab Results 02/01/25 Range/Units 18:21 WBC 13.3 H (4.5-10.0) K/mm3 RBC 3.56 L (4.6-6.20) M/mm3 Hgb 12.3 L (14.0-18.0) g/dL Hct 36.9 L (42.0-52.0) % MCV 103.7 H (80-100) fl MCH 34.6 H (26-34) pg MCHC 33.3 (32-36) g/dl RDW 14.1 (11.5-14.5) % Plt Count 152 (150-375) k/mm3 MPV 10.2 (7.4-10.4) fl Immature Gran % (Auto) 0.5 (0-0.5) % Neut % (Auto) 71.6 (45.5-73.1) % Lymph % (Auto) 16.8 L (18.3-44.2) % [place] % (Auto) 9.9 H (2.6-8.5) % Eos % (Auto) 1.0 (0-4.4) % Baso % (Auto) 0.2 (0.2-1.2) % Lymph # (Auto) 2.23 (0.9-3.2) K/mm3 [place] # (Auto) 1.3 H (0.1-0.6) K/mm3 Eos # (Auto) 0.1 (0-0.3) K/mm3 Baso # (Auto) 0.0 (0.0-0.1) K/mm3 Abs Immat Gran (auto) 0.07 H (0.00-0.031) K/mm3 Absolute Neuts (auto) 9.5 H (1.3-6.7) K/mm3 Absolute Nucleated RBC 0.000 (0.0-0.012) K/mm3 Nucleated RBC % 0.0 (0.0-0.2) % PT 14.7 (11.1-14.7) Seconds INR 1.2 APTT 30.9 (22.3-36.8) Seconds Sodium 138 (137-145) mmol/L Potassium 3.8 (3.4-5.0) mmol/L Chloride 103 (98-107) mmol/L Carbon Dioxide 26 (22-30) mmol/L Anion Gap 9 (4-12) mmol/L BUN 23 H D (9-20) mg/dL Creatinine 0.85 (0.7-1.3) mg/dL Estim Creat Clear Calc 54 ml/min Estimated GFR > 60 (59 - ) Glucose 133 H (65-110) mg/dL Lactic Acid 1.2 (0.7-2.0) mmol/L Calcium 8.8 (8.4-10.2) mg/dL Magnesium 2.0 (1.6-2.3) mg/dL Total Bilirubin 1.0 (0.2-1.3) mg/dL AST 36 (17-59) U/L ALT 19 (6-50) U/L Alkaline Phosphatase 142 H (38-126) U/L Total Protein 7.9 (6.3-8.2) g/dL Albumin 4.5 (3.5-5.1) g/dL Discharge Plan Discharge Clinical Impression: Acute subdural hematoma, Altered mental status Patient Disposition: Still a Patient Condition: Terminal Patient Language: Qatari Prescriptions: No Action lutein 10 mg tablet 10 mg PO DAILY Rx Instructions: give with meal/snack tamsulosin 0.4 mg capsule 0.4 mg PO DAILY carbidopa-levodopa 25-100 mg tablet extended release 1 tablet PO BID Qty: 60 4RF Rx Instructions: start with 1 tablet daily for 1 week and then 1 tablet twice a day at 8:00 a.m. and 2:00 p.m. memantine 10 mg tablet 10 mg PO BID Qty: 180 3RF hydrocodone-acetaminophen 5-325 mg tablet 1 tablet PO Q8H PRN (Reason: pain) Qty: 10 0RF quetiapine [Seroquel] 25 mg Tablet 25 mg PO DAILY PRN (Reason: agitation) Qty: 15 0RF lovastatin 20 mg tablet 20 mg PO DAILY Qty: 90 1RF mecobalamin (vitamin B12) 2,500 mcg tablet,chewable 2,500 mcg PO DAILY polyethylene glycol 3350 [Miralax] 17 gram/dose powder 17 g PO DAILY PRN (Reason: constipation) Qty: 510 0RF melatonin 10 mg tablet,disintegrating See Rx Instructions .ROUTE .COMPLEX Qty: 16 11RF Dose Instruction: (1) TABLET BY MOUTH AT BEDTIME NEEDED FOR SLEEP Rx Instructions: (1) TABLET BY MOUTH AT BEDTIME NEEDED FOR SLEEP Gemtesa 75 mg tablet 75 mg PO DAILY Qty: 90 0RF Follow-up/Referrals: Vaibhav Haro MD [Primary Care Provider, Family Practice]
--- NOTE | 2025-02-01 18:15 | PC.NURSE ---
Spoke with RA at half-way and she states patient's son, CLEMENT, was notified of patient coming to the ED. She also states patient fell at 0400 this morning and has been in bed all day mumbling, but she was unable to tell me the patient's baseline.
[2025-02-01 18:30] LABS: Hematocrit 36.9 % (42.0-52.0); Hemoglobin 12.3 g/dL (14.0-18.0); Immature Granulocyte Percent A 0.5 % (0-0.5); Lymphocytes Absolute Auto 2.23 K/mm3 (0.9-3.2); Mean Corpuscular HGB Conc 33.3 g/dl (32-36); Mean Corpuscular Hemoglobin 34.6 pg (26-34); Mean Corpuscular Volume 103.7 fl (80-100); Nucleated Red Blood Cells Absolute Auto 0.000 K/mm3 (0.0-0.012); Nucleated Red Blood Cells Perc 0.0 % (0.0-0.2); Platelet Count Result 152 k/mm3 (150-375); Red Blood Count 3.56 M/mm3 (4.6-6.20); White Blood Count 13.3 K/mm3 (4.5-10.0)
[2025-02-01 18:41] LABS: Alanine Aminotransferase 19 U/L (6-50); Albumin Level 4.5 g/dL (3.5-5.1); Alkaline Phosphatase 142 U/L (38-126); Anion Gap 9 mmol/L (4-12); Aspartate Amino Transferase 36 U/L (17-59); Bilirubin,Total 1.0 mg/dL (0.2-1.3); Blood Urea Nitrogen 23 mg/dL (9-20); Calcium 8.8 mg/dL (8.4-10.2); Carbon Dioxide 26 mmol/L (22-30); Chloride 103 mmol/L (98-107); Estimated CRCL calculation 54 ml/min; Estimated Glomerular Filt Rate > 60; Glucose 133 mg/dL (65-110); Magnesium 2.0 mg/dL (1.6-2.3); Potassium 3.8 mmol/L (3.4-5.0); Sodium 138 mmol/L (137-145); Total Protein 7.9 g/dL (6.3-8.2)
[2025-02-01 18:50] LABS: INR 1.2; Partial Thromboplastin Time 30.9 Seconds (22.3-36.8); Prothrombin Time 14.7 Seconds (11.1-14.7)
--- NOTE | 2025-02-01 21:30 | PC.NURSE ---
Hospice nurse at bedside. Waiting for son to arrive.
--- NOTE | 2025-02-01 23:10 | WPCEDHO ---
ED Hand Off Checklist All vitals saved:Y IV Site documented:Y All med administrations documented:Y Triage Note Triage Note patient fell 01/31/25 last night 02/01/25 17:51 and has since had decreased LOC throughout the day. patient vomited post fall but was not evaluated per EMS. patient EKG for EMS was afib and a weird rhythm. patient does not respond to stimuli upon arrival. patient eyes closed during triage. Allergies No Known Allergies Allergy (Verified 12/15/24 10:18) Notes 02/01/25 21:30 Nurse Note by Anitra Guido Hospice nurse at bedside. Waiting for son to arrive. Initialized on 02/01/25 21:30 - END OF NOTE 02/01/25 18:15 Nurse Note by Lori Chinchilla Spoke with RA at group home and she states patient's son, CLEMENT, was notified of patient coming to the ED. She also states patient fell at 0400 this morning and has been in bed all day mumbling, but she was unable to tell me the patient's baseline. Initialized on 02/01/25 18:15 - END OF NOTE Interventions/Assessments PA: Cardiovascular Assessment Start: 02/01/25 17:45 Freq: Status: Active Protocol: Document 02/01/25 18:11 JJJ (Rec: 02/01/25 18:13 JJJ [id number]) Cardiovascular Assessment Cardiovascular None Symptoms Skin Description Dry PA: Neurological Assessment Start: 02/01/25 17:45 Freq: Status: Active Protocol: Document 02/01/25 18:11 JJJ (Rec: 02/01/25 18:13 JJJ [id number]) Neurological Assessment Unable to Redirect No Behavior Level of Unconscious Consciousness Tongue Position Unable to Assess Finger to Nose Test Activity Impossible Heel to [place] Test Activity Impossible Ability to Maintain Unable to Assess Balance Facial Symmetry Unable to Assess Speech Pattern Unable to Assess Ability to Swallow Unable to Assess Neurological Reflexes Corneal Reflex Absent Right Response Blink Reflex Absent Response Cough/Gag Reflex Present Zain Coma Scale Eyes No Response Verbal Moans, Unintelligible Motor No Response Zain Coma Total 4 Score PA: Respiratory Assessment Start: 02/01/25 17:45 Freq: Status: Active Protocol: Document 02/01/25 18:11 JJJ (Rec: 02/01/25 18:13 JJJ [id number]) Respiratory Assessment Symptoms Cyanosis Effort Abdominal Breathing Cough Description Hacking Cough Frequency Intermittent Cough Reflex Present Oxygen Delivery Oxygen Delivery Room Air Last Vital Signs Pulse Rate 77 02/01/25 23:00 Respiratory Rate 25 H 02/01/25 23:00 Pulse Oximetry 94 02/01/25 23:00 Blood Pressure 147/72 H 02/01/25 23:00 Blood Pressure Mean 97 02/01/25 23:00 Oxygen Delivery Room Air 02/01/25 18:11 Weight 82 kg 02/01/25 17:51 Last Result - Abnormals Only WBC 13.3 K/mm3 (4.5-10.0) H 02/01/25 18:21 RBC 3.56 M/mm3 (4.6-6.20) L 02/01/25 18:21 Hgb 12.3 g/dL (14.0-18.0) L 02/01/25 18:21 Hct 36.9 % (42.0-52.0) L 02/01/25 18:21 MCV 103.7 fl (80-100) H 02/01/25 18:21 MCH 34.6 pg (26-34) H 02/01/25 18:21 Lymph % (Auto) 16.8 % (18.3-44.2) L 02/01/25 18:21 [place] % (Auto) 9.9 % (2.6-8.5) H 02/01/25 18:21 [place] # (Auto) 1.3 K/mm3 (0.1-0.6) H 02/01/25 18:21 Abs Immat Gran (auto) 0.07 K/mm3 (0.00-0.031) H 02/01/25 18:21 Absolute Neuts (auto) 9.5 K/mm3 (1.3-6.7) H 02/01/25 18:21 BUN 23 mg/dL (9-20) H D 02/01/25 18:21 Glucose 133 mg/dL (65-110) H 02/01/25 18:21 Alkaline Phosphatase 142 U/L (38-126) H 02/01/25 18:21
== END 2025-02-01 23:00 | disposition hospice, inpatient (51) ==
PROVIDERS: Emergency Provider Emergency Medicine; PCP Family Medicine
DX: S06.5XAA Traumatic subdural hemorrhage with loss of consciousness status unknown, initial encounter (principal); R41.82 Altered mental status, unspecified; G30.9 Alzheimer's disease, unspecified; F02.80 Dementia in other diseases classified elsewhere, unspecified severity, without behavioral disturbance, psychotic disturbance, mood disturbance, and anxiety; M19.90 Unspecified osteoarthritis, unspecified site; N40.0 Benign prostatic hyperplasia without lower urinary tract symptoms; E78.5 Hyperlipidemia, unspecified; Z66 Do not resuscitate; W19.XXXA Unspecified fall, initial encounter
CPT/HCPCS: 36415; 70450; 71045; 72125; 80053; 83605; 83735; 85025; 85610; 85730; 99285; A9270

== ENCOUNTER 2025-02-01 23:01 | HOS | payer OTHER, MEDICARE, SELFPAY ==
[2025-02-02 00:30] VITALS: BP 157/59; PULSE 71; RESP 16; TEMP 36.9; O2SAT 91
[2025-02-02 01:08] VITALS: PULSE 77; RESP 23
[2025-02-02] MEDS: MORPHINE 50 MG/NS 100ML (*CRX) 50 MG/100 ML BAG IV CONT (01:08)
[2025-02-02 04:57] VITALS: PULSE 60; RESP 20; O2SAT 90
[2025-02-02 14:00] VITALS: BP 151/63; PULSE 53; RESP 16; O2SAT 95
--- NOTE | 2025-02-02 16:38 | P.HP_ITS ---
H&P: HPI History of Present Illness Date/Time: 02/02/25 16:38 Chief Complaint: Uncontrolled dyspnea, possible pain Narrative: 89-year-old resident of [facility] with a history of dementia and ataxia had a fall with head trauma February 01. CT showed large subdural hematoma with midline shift. Because of his advanced dementia and poor quality of life with other comorbidities his family opted for hospice care. Because of uncontrolled dyspnea and possible pain the patient was admitted inpatient hospice service for continue his IV medication. Review of Systems Review of Systems: ROS unobtainable: Yes unobtainable due to medical condition PMFSH Past Medical History Medical History Dementia of Alzheimer's type with behavioral disturbance Falls frequently Ataxia Obesity Osteoarthritis BPH (benign prostatic hyperplasia) Dyslipidemia Family History Family History Father No problems noted. Mother No problems noted. Social History Social History Social History: POLST signed 08/09/24 lists Do Not Attempt Resuscitation/DNR with comfort-focused treatment Smoking status: Former smoker Tobacco type: cigars Second hand tobacco smoke exposure: No Alcohol intake: unknown Alcohol use details: Wine Substance use: unknown Substance use type: does not use Lack of Transportation: No Lack of Food: Never True Current Housing: Decline to Answer Concerned About Future Housing: Decline to Answer Difficulty Paying Gas/Electric Bills: Decline to Answer Difficulty Paying for Meds: Decline to Answer Currently Unemployed: Decline to Answer Education: Decline to Answer Difficulty w/ Childcare or Family Care: Decline to Answer Living arrangements: [facility] Additional living arrangements comments: [facility] care concerns: No Meds Home Medications and Allergies Home Medications ?Medication ?Instructions ?Recorded ?Confirmed ?Type lutein 10 mg tablet 10 mg PO DAILY 10/26/2001/09 History lovastatin 20 mg tablet 20 mg PO DAILY #90 tabs 07/0102/02/25 Rx mecobalamin (vitamin B12) 2,500 2,500 mcg PO DAILY 02/02/25 History mcg chewable tablet quetiapine 25 mg tablet (Seroquel) 25 mg PO DAILY PRN agitation #15 09/06/24 02/02/25 Rx tabs tamsulosin 0.4 mg capsule 0.4 mg PO DAILY 11/02/24 History Held on 12/08/24. Instructions: Home Medication placed on hold at Doctor's office polyethylene glycol 3350 17 17 g PO DAILY PRN constipa tion 11/14/24 02/02/25 Rx gram/dose oral powder (Miralax) #510 grams carbidopa ER 25 mg-levodopa 100 mg 1 tablet PO BID #60 tabs 11/17/24 02/02/25 Rx tablet,extended release memantine 10 mg tablet 10 mg PO BID #180 tabs 11/1702/02/25 Rx hydrocodone 5 mg-acetaminophen 325 1 tablet PO Q8H PRN pain #10 tabs 12/04/24 02/02/25 Rx mg tablet melatonin 10 mg disintegrating See Rx Instructions .[place] 12/27/24 02/02/25 Rx tablet .COMPLEX #16 tabs vibegron 75 mg tablet (Gemtesa) 75 mg PO DAILY #90 tab s 12/31/24 Rx Allergies Allergy/AdvReac Type Severity Reaction Status Date / Time No Known Allergies Allergy Verified 12/15/24 10:18 Vital Signs Vital Signs - 24 hr 02/02/25 00:30 02/02/25 01:08 02/02/25 04:57 Temperature 98.5 F Pulse Rate 71 77 60 Respiratory Rate 16 23 H 20 Blood Pressure 157/59 H Pulse Oximetry 91 90 Oxygen Delivery Room Air Fraction of Inspired Oxygen 21 02/02/25 14:00 Temperature Pulse Rate 53 L Respiratory Rate 16 Blood Pressure 151/63 H Pulse Oximetry 95 Oxygen Delivery Fraction of Inspired Oxygen Exam Narrative: elderly gentleman lying in hospital bed in no acute distress head eyes ears nose and throat: sclerae nonicteric, oral mucosa moist neck: without JVD chest: coarse breath sounds throughout with scattered coarse crackles heart: normal S1 and S2, regular rate, no audible murmurs or gallops abdomen: hypoactive bowel sounds, soft, no palpable mass, no obvious tenderness extremities: no edema musculoskeletal: no gross deformity to visual inspection neurologic: cranial nerves symmetric psychological: unresponsive verbal or tactile stimuli Assessment and Plan Assessment and plan (1) Hospice care: Code(s): Z51.5 - Encounter for palliative care Status: Acute Assessment and Plan: * Meet inpatient hospice criteria due to requiring continuous IV morphine for control of dyspnea and pain * p.r.n. palliative regimen ordered (2) Acute subdural hematoma: Code(s): S06.5XAA - Traumatic subdural hemorrhage with loss of consciousness status unknown, initial encounter Status: Inactive (3) Dementia of Alzheimer's type with behavioral disturbance: Code(s): G30.9 - Alzheimer's disease, unspecified; F02.818 - Dementia in other diseases classified elsewhere, unspecified severity, with other behavioral disturbance Status: Acute
[2025-02-02 20:00] VITALS: BP 143/64; PULSE 57; RESP 19; TEMP 36.2; O2SAT 88
[2025-02-02] MEDS: GLYCOPYRROLATE INJ (*SP) 0.2 MG/ML VIAL 0.1 MG IV PUSH (20:47)
[2025-02-03 01:17] VITALS: PULSE 84; RESP 36
[2025-02-03] MEDS: MORPHINE 50 MG/NS 100ML (*CRX) 50 MG/100 ML BAG IV CONT (01:17)
[2025-02-03 07:50] VITALS: BP 117/53; PULSE 60; RESP 20; TEMP 36.3; O2SAT 89
--- NOTE | 2025-02-03 16:16 | P.PNIM_ITS ---
Progress Note: A&P Assessment and Plan (1) Hospice care: Code(s): Z51.5 - Encounter for palliative care Status: Acute Assessment and Plan: * Meet inpatient hospice criteria due to requiring continuous IV morphine for control of dyspnea and pain * p.r.n. palliative regimen ordered * 02/03/2025 continues to meet inpatient hospice criteria due to change in neurological status and need for continuous IV medication for comfort (2) Acute subdural hematoma: Code(s): S06.5XAA - Traumatic subdural hemorrhage with loss of consciousness status unknown, initial encounter Status: Inactive (3) Dementia of Alzheimer's type with behavioral disturbance: Code(s): G30.9 - Alzheimer's disease, unspecified; F02.818 - Dementia in other diseases classified elsewhere, unspecified severity, with other behavioral disturbance Status: Acute Subjective Date/time seen: 02/03/25 16:16 Interval history: Comfortable overnight. Review of Systems Review of Systems: ROS unobtainable: Yes unobtainable due to medical condition Exam Narrative: elderly gentleman lying in hospital bed in no acute distress head eyes ears nose and throat: Pupils asymmetric with left larger than right, sclerae nonicteric, oral mucosa moist neck: without JVD chest: coarse breath sounds throughout with scattered coarse crackles heart: normal S1 and S2, regular rate, no audible murmurs or gallops abdomen: hypoactive bowel sounds, soft, no palpable mass, no obvious tenderness extremities: no edema musculoskeletal: no gross deformity to visual inspection neurologic: cranial nerves symmetric psychological: unresponsive verbal or tactile stimuli Objective Data Vital Signs Vital Signs: Vital Signs - 24 hr 02/02/25 20:00 02/02/25 20:00 02/03/25 01:17 Temperature 97.1 F L Pulse Rate 57 L 84 Respiratory Rate 19 36 H Blood Pressure 143/64 H Pulse Oximetry 88 L Oxygen Delivery Room Air 02/03/25 01:17 02/03/25 07:45 02/03/25 07:50 Temperature 97.3 F L Pulse Rate 84 60 Respiratory Rate 36 H 20 Blood Pressure 117/53 L Pulse Oximetry 89 L Oxygen Delivery Room Air Intake/Output Intake/Output: Intake & Output 01/31/25 02/01/25 02/02/25 02/03/25 23:59 23:59 23:59 23:59 Intake Total 0 48.3 Output Total 1430 375 Balance -1430 -326.7 Meds/Results Medications: Active Medications Generic Name Dose Route Start Last Admin Trade Name Freq PRN Reason Stop Dose Admin Acetaminophen 650 mg 02/02/25 00:37 Acetaminophen 650 Mg Suppository RECTAL Q6H PRN Fever Artificial Tears 1 drop 02/02/25 00:37 Artificial Tears Ophth Soln 15 Ml Bottle EACH EYE Q12HR PRN Dry Eye(s) Bisacodyl 10 mg 02/02/25 00:37 Bisacodyl 10 Mg Suppository RECTAL DAILY PRN Constipation Diazepam 2.5 mg 02/02/25 00:56 Diazepam Inj (*Crx) 10 Mg/2 Ml Syringe IV PUSH Q4HR PRN Restless Glycopyrrolate 0.1 mg 02/02/25 00:42 02/02/25 20:47 Glycopyrrolate Inj (*Sp) 0.2 Mg/Ml Vial IV PUSH 0.1 mg Q4HR PRN Administration Secretions Morphine Sulfate 50 mg in 100 mls @ 2 mls/hr 02/02/25 00:40 02/03/25 01:17 IV CONT 1 mg/hr .Q24H CORTES 2 mls/hr 1 MG/HR Administration Morphine Sulfate 2 mg 02/02/25 00:37 Morphine Sulfate (*Crx) 4 Mg/Ml Inj IV PUSH Q2H PRN Pain Prochlorperazine Edisylate 10 mg 02/02/25 00:37 Prochlorperazine Edisylate 10 Mg/2 Ml Vial IV PUSH Q6H PRN Nausea And Vomiting
[2025-02-03 20:00] VITALS: BP 118/46; PULSE 58; RESP 23; TEMP 36.1; O2SAT 88
[2025-02-03 20:53] VITALS: O2SAT 89
[2025-02-04] MEDS: MORPHINE 50 MG/NS 100ML (*CRX) 50 MG/100 ML BAG IV CONT (03:34)
[2025-02-04 08:00] VITALS: BP 110/44; PULSE 52; RESP 22; TEMP 35.6; O2SAT 92
[2025-02-04] MEDS: diazePAM INJ (*CRX) 10 MG/2 ML SYRINGE 2.5 MG IV PUSH (11:51)
[2025-02-04] MEDS: GLYCOPYRROLATE INJ (*SP) 0.2 MG/ML VIAL 0.1 MG IV PUSH (11:52)
--- NOTE | 2025-02-04 17:28 | P.PNIM_ITS ---
Progress Note: A&P Assessment and Plan (1) Hospice care: Code(s): Z51.5 - Encounter for palliative care Status: Acute Assessment and Plan: * Meet inpatient hospice criteria due to requiring continuous IV morphine for control of dyspnea and pain * p.r.n. palliative regimen ordered * 02/03/2025 continues to meet inpatient hospice criteria due to change in neurological status and need for continuous IV medication for comfort * 02/04/2025 now requiring p.r.n. medication for control of restlessness and respiratory distress as well as new bradycardia and hypothermia (2) Acute subdural hematoma: Code(s): S06.5XAA - Traumatic subdural hemorrhage with loss of consciousness status unknown, initial encounter Status: Inactive (3) Dementia of Alzheimer's type with behavioral disturbance: Code(s): G30.9 - Alzheimer's disease, unspecified; F02.818 - Dementia in other diseases classified elsewhere, unspecified severity, with other behavioral disturbance Status: Acute Subjective Date/time seen: 02/04/25 17:28 Interval history: Some restlessness and increased respiratory struggling with gurgling earlier today required p.r.n. meds. Review of Systems Review of Systems: ROS unobtainable: Yes unobtainable due to medical condition Exam Narrative: elderly gentleman lying in hospital bed in no acute distress head eyes ears nose and throat: Pupils asymmetric with left larger than right, sclerae nonicteric, oral mucosa moist neck: without JVD chest: coarse breath sounds throughout with scattered coarse crackles heart: normal S1 and S2, regular rate, no audible murmurs or gallops abdomen: hypoactive bowel sounds, soft, no palpable mass, no obvious tenderness extremities: no edema musculoskeletal: no gross deformity to visual inspection neurologic: cranial nerves symmetric psychological: unresponsive verbal or tactile stimuli Objective Data Vital Signs Vital Signs: Vital Signs - 24 hr 02/03/25 20:00 02/03/25 20:53 02/04/25 08:00 Temperature 97 F L 96.1 F L Pulse Rate 58 L 52 L Respiratory Rate 23 H 22 H Blood Pressure 118/46 L 110/44 L Pulse Oximetry 88 L 89 L 92 Oxygen Delivery Room Air Intake/Output Intake/Output: Intake & Output 02/01/25 02/02/25 02/03/25 02/04/25 23:59 23:59 23:59 23:59 Intake Total 0 48.3 52.6 Output Total 1430 375 50 Balance -1430 -326.7 2.6 Meds/Results Medications: Active Medications Generic Name Dose Route Start Last Admin Trade Name Freq PRN Reason Stop Dose Admin Acetaminophen 650 mg 02/02/25 00:37 Acetaminophen 650 Mg Suppository RECTAL Q6H PRN Fever Artificial Tears 1 drop 02/02/25 00:37 Artificial Tears Ophth Soln 15 Ml Bottle EACH EYE Q12HR PRN Dry Eye(s) Bisacodyl 10 mg 02/02/25 00:37 Bisacodyl 10 Mg Suppository RECTAL DAILY PRN Constipation Diazepam 2.5 mg 02/02/25 00:56 02/04/25 11:51 Diazepam Inj (*Crx) 10 Mg/2 Ml Syringe IV PUSH 2.5 mg Q4HR PRN Administration Restless Glycopyrrolate 0.1 mg 02/02/25 00:42 02/04/25 11:52 Glycopyrrolate Inj (*Sp) 0.2 Mg/Ml Vial IV PUSH 0.1 mg Q4HR PRN Administration Secretions Morphine Sulfate 50 mg in 100 mls @ 2 mls/hr 02/02/25 00:40 02/04/25 03:34 IV CONT 1 mg/hr .Q24H CORTES 2 mls/hr 1 MG/HR Administration Morphine Sulfate 2 mg 02/02/25 00:37 Morphine Sulfate (*Crx) 4 Mg/Ml Inj IV PUSH Q2H PRN Pain Prochlorperazine Edisylate 10 mg 02/02/25 00:37 Prochlorperazine Edisylate 10 Mg/2 Ml Vial IV PUSH Q6H PRN Nausea And Vomiting
[2025-02-04 20:00] VITALS: BP 113/53; PULSE 56; RESP 16; TEMP 35.5; O2SAT 90
[2025-02-04 21:04] VITALS: BP 113/53; PULSE 56; RESP 16; TEMP 35.5; O2SAT 90
[2025-02-05] MEDS: MORPHINE 50 MG/NS 100ML (*CRX) 50 MG/100 ML BAG IV CONT (03:54)
[2025-02-05] MEDS: MORPHINE SULFATE (*CRX) 4 MG/ML INJ 2 MG IV PUSH (04:29)
[2025-02-05] MEDS: GLYCOPYRROLATE INJ (*SP) 0.2 MG/ML VIAL 0.1 MG IV PUSH (04:30)
--- NOTE | 2025-02-05 18:07 | P.DN_ITS ---
Discharge Summary Date and Time Date of : 02/05/25 Time of : 08:08 Provider Pronounced By: 2 RNs Name of First RN That Pronounced: Kerri Ortiz RN Name of Second RN That Pronounced: Clayton Márquez RN Probable Cause of Probable Cause of : Subdural hemorrhage Summary Hospital Course: Admitted to inpatient hospice service for symptom management. Medication was titrated to comfort. Mr. Gutierrez peacefylly. Additional Data Confirmation of as documented by pronouncing clinician: Pupillary Reflex, Palpable Pulses, Response to Stimuli, Heart Tones and Breath Sounds Name of Provider Notified: aCio Pfeiffer Time Provider Notified: 08:20 Provider Requests Autopsy: No Family Requests Autopsy: No Supervising Film Or Videotape Editor Notified: Yes Date [facility] Notified of : 02/05/25 Time [facility] Notified of : 08:35
== END 2025-02-05 08:08 | disposition expired | DRG 951 ==
PROVIDERS: Admitting Provider Internal Medicine; PCP Family Medicine; Visit Provider Internal Medicine
DX: Z51.5 Encounter for palliative care (principal); S06.5X0A Traumatic subdural hemorrhage without loss of consciousness, initial encounter; F02.818 Dementia in other diseases classified elsewhere, unspecified severity, with other behavioral disturbance; G30.9 Alzheimer's disease, unspecified; M19.90 Unspecified osteoarthritis, unspecified site; N40.0 Benign prostatic hyperplasia without lower urinary tract symptoms; E78.5 Hyperlipidemia, unspecified; E66.9 Obesity, unspecified; Z66 Do not resuscitate; M21.371 Foot drop, right foot; R27.0 Ataxia, unspecified; W19.XXXA Unspecified fall, initial encounter; Z87.891 Personal history of nicotine dependence
CPT/HCPCS: A9270; J1596; J2270; J3360